=== PATIENT | female | born 1960 | race Caucasian/White ===

== ENCOUNTER 2017-07-14 07:30 | Emergency (ER) | payer MEDICARE, OTHER ==
[~2017-07-14] VITALS: Ht 5619.3 cm; Wt 115.0 kg
[~2017-07-14 07:30] MED LIST: ALBU8HFA PO; ATOR-2 PO; CARV-50 PO; DICL100G15 TP; FURO80TA87 PO; GABA-532 PR; HYDR-565 PO; METF500T7 PO; NITR0.4T51 SL; OMEP20TA5 PO; OXYB5TAB11 PO; RANI300C PO; TIZA4CAP6 PO
[2017-07-14 08:02] LABS: CLARITY,URINE CLEAR (Clear); COLOR,URINE YELLOW (Yellow); GLUCOSE, URINE NEGATIVE (Neg); KETONES,URINE TRACE mg/dl (Neg); LEUKOCYTE ESTERASE ,URINE NEGATIVE (Neg); NITRITES, URINE NEGATIVE (Neg); OCCULT BLOOD,URINE TRACE-INTACT (Neg); PROTEIN,URINE 30 mg/dl (Neg); UROBILINOGEN,URINE 0.2 E.U/dL (0.2-1.0)
[2017-07-14 08:07] LABS: UA COLLECTION TYPE OTHER
[2017-07-14 08:09] LABS: BACTERIA,URINE FEW /HPF (Neg); MUCUS STRANDS FEW /LPF (Neg); RBC,URINE 0-2 /HPF (0-2); SQUAMOUS EPITHELIAL CELL,UR MODERATE /LPF (FEW); WBC,URINE 0-4 /HPF (0-4)
[2017-07-14] MEDS ORDERED: ondansetron/PF 4mg/2ml inj IV ONE (08:20)
[2017-07-14] MEDS ORDERED: normal saline 1000ML IV soln IVB ONE ×2 (08:20)
[2017-07-14 08:47] LABS: BASOPHILS % (AUTO) 0.3 % (0-1); EOSINOPHILS # (AUTO) 0.5 X10'3 (0-0.9); EOSINOPHILS % (AUTO) 3.4 % (0-6); HEMATOCRIT 45.9 % (35.0-45.0); LYMPHOCYTES # (AUTO) 1.9 X10'3 (1.1-4.8); LYMPHOCYTES % (AUTO) 12.3 % (21-51); MEAN CORPUSCULAR VOLUME 88.8 FL (78-98); MEAN PLATELET VOLUME 7.8 FL (7.4-10.4); MONOCYTES # (AUTO) 0.6 X10'3 (0-0.9); MONOCYTES % (AUTO) 4.1 % (2-12); NEUTROPHILS # (AUTO) 12.1 X10'3 (1.8-7.7); NEUTROPHILS % (AUTO) 79.9 % (42-75); PLATELET COUNT 362 X10'3 (140-440); RED BLOOD COUNT 5.17 X10'6 (4.20-5.60); RED CELL DISTRIBUTION WIDTH 13.2 % (11.5-14.5); WHITE BLOOD COUNT 15.1 X10'3 (4.5-11.0)
[2017-07-14 09:02] LABS: ALANINE AMINOTRANSFERASE 28 U/L (12-78); ALBUMIN 3.7 G/DL (3.4-5.0); ALBUMIN/GLOBULIN RATIO 0.8 (1.1-1.5); ALKALINE PHOSPHATASE 118 IU/L (46-116); ANION GAP 11 (8-16); ASPARTATE AMINO TRANSFERASE 19 U/L (10-37); BILIRUBIN,TOTAL 0.4 MG/DL (0.1-1.0); BLOOD UREA NITROGEN 16 MG/DL (7-18); BUN/CREATININE RATIO 14.4 (6.6-38.0); CALCIUM 9.7 MG/DL (8.5-10.1); CHLORIDE 102 MMOL/L (99-107); CREATININE 1.11 MG/DL (0.40-0.90); GLUCOSE 156 MG/DL (70-104); LIPASE 156 U/L (73-393); POTASSIUM 4.5 MMOL/L (3.5-5.1); SODIUM 139 MMOL/L (135-145); TOTAL CARBON DIOXIDE 25.8 MMOL/L (24-32); TOTAL PROTEIN 8.4 G/DL (6.4-8.2); eGFR 51 ML/MIN
[2017-07-14] MEDS ORDERED: PANT-47 PO (09:48)
[2017-07-14] MEDS: proCHLORperazine 10 MG/2 ml inj IV ONE ×2 (09:54→10:12)
[2017-07-14] MEDS ORDERED: morphine 4 MG/ML inj SYRINge IV ONE (10:10)
[2017-07-14 10:54] VITALS: BP 168/83
== END 2017-07-14 10:58 | disposition home or self-care (01) ==
LOC: ER 07:30
DX: R10.13 Epigastric pain (principal); I25.10 Atherosclerotic heart disease of native coronary artery without angina pectoris; E78.00 Pure hypercholesterolemia, unspecified; I25.2 Old myocardial infarction; K21.9 Gastro-esophageal reflux disease without esophagitis; E11.9 Type 2 diabetes mellitus without complications; F17.200 Nicotine dependence, unspecified, uncomplicated; G89.29 Other chronic pain; Z88.2 Allergy status to sulfonamides; Z88.0 Allergy status to penicillin; Z79.899 Other long term (current) drug therapy; Z86.73 Personal history of transient ischemic attack (TIA), and cerebral infarction without residual deficits; Z79.84 Long term (current) use of oral hypoglycemic drugs
CPT/HCPCS: 36415; 71045; 80053; 81001; 83690; 85025; 93005; 96361; 96374; 96375; 99285; J0780; J2270; J2405; J7030

== ENCOUNTER 2019-10-20 16:20 | Emergency (ER) | payer MEDICARE, OTHER ==
[~2019-10-20] VITALS: Ht 170.2 cm; Wt 111.0 kg
[~2019-10-20 16:20] MED LIST changes: -ATOR-2 PO; +BACL-11 PO; -CARV-50 PO; -DICL100G15 TP; -FURO80TA87 PO; -GABA-532 PR; -HYDR-565 PO; +LEVO500T89 PO; -METF500T7 PO; -OMEP20TA5 PO; -OXYB5TAB11 PO; +PRED20TA PO; -RANI300C PO; -TIZA4CAP6 PO
[2019-10-20] MEDS ORDERED: MULT-687 PO (16:41)
[2019-10-20] MEDS ORDERED: ASPI-611 PO (16:41)
--- NOTE | 2019-10-20 16:46 | NUR ---
With patient to CT at this time per MD order. Patient awake, alert, no signs of distress noted, slurred speech noted.
[2019-10-20 16:50] LABS: BASOPHILS # (AUTO) 0.1 X10'3 (0-0.2); BASOPHILS % (AUTO) 0.8 % (0-1); EOSINOPHILS # (AUTO) 0.2 X10'3 (0-0.9); EOSINOPHILS % (AUTO) 2.6 % (0-6); HEMATOCRIT 44.5 % (35.0-45.0); LYMPHOCYTES # (AUTO) 2.7 X10'3 (1.1-4.8); LYMPHOCYTES % (AUTO) 33.3 % (21-51); MEAN CORPUSCULAR HEMOGLOBIN 31.5 PG (27.0-31.0); MEAN CORPUSCULAR HGB CONC 33.7 g/dL (33.0-36.5); MEAN CORPUSCULAR VOLUME 93.5 FL (78-98); MEAN PLATELET VOLUME 7.6 FL (7.4-10.4); MONOCYTES # (AUTO) 0.6 X10'3 (0-0.9); MONOCYTES % (AUTO) 7.4 % (2-12); NEUTROPHILS # (AUTO) 4.6 X10'3 (1.8-7.7); NEUTROPHILS % (AUTO) 55.9 % (42-75); PLATELET COUNT 332 X10'3 (140-440); RED BLOOD COUNT 4.76 X10'6 (4.20-5.60); RED CELL DISTRIBUTION WIDTH 14.3 % (11.5-14.5); WHITE BLOOD COUNT 8.2 X10'3 (4.5-11.0)
--- NOTE | 2019-10-20 16:50 | NUR ---
Pt in ct scan, returns to bed 7. pt with sympoms of R arm chest pain, reports as stabbing pain rates 3/10. This pain radiates down her right leg. These symptoms started at 1pm when she went to the door and picked up a package. She also reports, thick, slow speech which is new for her. Decreased sensation around entire mouth, and left arm. Will have telemed consult as she is with in the 05/07 window.
--- NOTE | 2019-10-20 17:00 | NUR ---
Stroke RN Annabelle at bedside at this time.
[2019-10-20 17:01] LABS: PARTIAL THROMBOPLASTIN TIME 29 SECONDS (22-32)
[2019-10-20 17:03] LABS: ALANINE AMINOTRANSFERASE 31 U/L (12-78); ALBUMIN 3.5 G/DL (3.4-5.0); ALBUMIN/GLOBULIN RATIO 0.9 (1.1-1.5); ALKALINE PHOSPHATASE 130 IU/L (46-116); ANION GAP 8 (8-16); ASPARTATE AMINO TRANSFERASE 18 U/L (10-37); BILIRUBIN,TOTAL 0.3 MG/DL (0.1-1.0); BLOOD UREA NITROGEN 9 MG/DL (7-18); BUN/CREATININE RATIO 10.1 (6.6-38.0); CALCIUM 9.1 MG/DL (8.5-10.1); CHLORIDE 106 MMOL/L (99-107); CREATININE 0.89 MG/DL (0.40-0.90); GLUCOSE 129 MG/DL (70-104); POTASSIUM 4.1 MMOL/L (3.5-5.1); SODIUM 141 MMOL/L (135-145); TOTAL CARBON DIOXIDE 26.6 MMOL/L (24-32); TOTAL PROTEIN 7.6 G/DL (6.4-8.2); eGFR 65 ML/MIN
[2019-10-20 17:07] LABS: TROPONIN I < 0.04 NG/ML (0.0-0.05)
--- NOTE | 2019-10-20 17:13 | NUR ---
PER STROKE RN MAICO PATIENT IS LEVEL 1 STROKE SINCE SYMPTOMS OF NUMBNESS AROUND MOUTH AND RIGHT ARM STARTED AT APPROXIMATELY 1300 TODAY.
--- NOTE | 2019-10-20 17:15 | NUR ---
assist to bedside commode to void, symptoms unchanged.
[2019-10-20] MEDS ORDERED: iohexol 350MG/ML 100ml bottle IV ONE ×2 (17:39→17:56)
--- NOTE | 2019-10-20 17:39 | NUR ---
Dr. Shanks from consults for neurlogy via telemedicine, facial droop is now resolved. continues to have right side chest pain and thick slow speech.
[2019-10-20] MEDS ORDERED: iohexol 350 MG/ML 50ML vial IV ONE (18:00)
[2019-10-20] MEDS ORDERED: morphine 4 MG/ML inj SYRINge IV ONE (18:50)
[2019-10-20 19:27] VITALS: BP 171/74
[2019-10-20] MEDS ORDERED: HYDR-4383 PO (19:27)
== END 2019-10-20 19:31 | disposition home or self-care (01) ==
LOC: ER 16:20
DX: I10 Essential (primary) hypertension (principal); R07.89 Other chest pain; R59.1 Generalized enlarged lymph nodes; I25.10 Atherosclerotic heart disease of native coronary artery without angina pectoris; E78.00 Pure hypercholesterolemia, unspecified; I25.2 Old myocardial infarction; J45.909 Unspecified asthma, uncomplicated; K21.9 Gastro-esophageal reflux disease without esophagitis; E11.9 Type 2 diabetes mellitus without complications; G89.29 Other chronic pain; Z90.49 Acquired absence of other specified parts of digestive tract; Z98.890 Other specified postprocedural states; Z86.73 Personal history of transient ischemic attack (TIA), and cerebral infarction without residual deficits; Z88.0 Allergy status to penicillin; Z88.2 Allergy status to sulfonamides; Z88.8 Allergy status to other drugs, medicaments and biological substances; Z79.82 Long term (current) use of aspirin; Z79.899 Other long term (current) drug therapy
CPT/HCPCS: 36415; 70450; 70496; 70498; 71045; 71275; 80053; 84484; 85025; 85610; 85730; 93005; 96374; 99285; J2270; Q9967

== ENCOUNTER 2020-08-12 19:10 | Emergency (ER) | payer MEDICARE, MEDICAID ==
[~2020-08-12] VITALS: Ht 170.2 cm; Wt 107.3 kg
[~2020-08-12 19:10] MED LIST changes: +ASPI-611 PO; -BACL-11 PO; +HYDR-4383 PO; -LEVO500T89 PO; +MULT-687 PO; -NITR0.4T51 SL; -PRED20TA PO
[2020-08-12] MEDS ORDERED: ketorolac trometh. 30mg/ml inj. IM ONE (20:40)
[2020-08-12 20:49] VITALS: BP 217/104
== END 2020-08-12 20:50 | disposition home or self-care (01) ==
LOC: ER 19:12
DX: S93.491A Sprain of other ligament of right ankle, initial encounter (principal); I25.10 Atherosclerotic heart disease of native coronary artery without angina pectoris; E78.00 Pure hypercholesterolemia, unspecified; I25.2 Old myocardial infarction; K21.9 Gastro-esophageal reflux disease without esophagitis; J45.909 Unspecified asthma, uncomplicated; E11.9 Type 2 diabetes mellitus without complications; G89.29 Other chronic pain; M79.7 Fibromyalgia; Z90.49 Acquired absence of other specified parts of digestive tract; Z86.73 Personal history of transient ischemic attack (TIA), and cerebral infarction without residual deficits; Z98.890 Other specified postprocedural states; Z88.0 Allergy status to penicillin; Z91.018 Allergy to other foods; Z88.2 Allergy status to sulfonamides; Z88.8 Allergy status to other drugs, medicaments and biological substances; Z79.899 Other long term (current) drug therapy; X50.1XXA Overexertion from prolonged static or awkward postures, initial encounter; Y93.89 Activity, other specified; Y92.89 Other specified places as the place of occurrence of the external cause; Y99.8 Other external cause status
CPT/HCPCS: 73610; 96372; 99284; J1885

== ENCOUNTER 2020-10-26 13:35 | Emergency (ER) | payer MEDICARE, MEDICAID ==
[~2020-10-26] VITALS: Ht 170.2 cm; Wt 102.7 kg
[2020-10-26 15:09] LABS: BASOPHILS # (AUTO) 0.1 X10'3 (0-0.2); BASOPHILS % (AUTO) 0.7 % (0-1); EOSINOPHILS # (AUTO) 0.4 X10'3 (0-0.9); EOSINOPHILS % (AUTO) 3.9 % (0-6); HEMATOCRIT 38.4 % (35.0-45.0); HEMOGLOBIN 13.3 g/dl (12.0-16.0); LYMPHOCYTES # (AUTO) 1.9 X10'3 (1.1-4.8); LYMPHOCYTES % (AUTO) 21.2 % (21-51); MEAN CORPUSCULAR HEMOGLOBIN 31.2 PG (27.0-31.0); MEAN CORPUSCULAR HGB CONC 34.5 g/dL (33.0-36.5); MEAN CORPUSCULAR VOLUME 90.3 FL (78-98); MEAN PLATELET VOLUME 7.2 FL (7.4-10.4); MONOCYTES # (AUTO) 0.7 X10'3 (0-0.9); NEUTROPHILS % (AUTO) 66.2 % (42-75); PLATELET COUNT 352 X10'3 (140-440); RED BLOOD COUNT 4.25 X10'6 (4.20-5.60); RED CELL DISTRIBUTION WIDTH 13.2 % (11.5-14.5)
[2020-10-26 15:22] LABS: ALANINE AMINOTRANSFERASE 20 U/L (12-78); ALBUMIN 3.1 G/DL (3.4-5.0); ALBUMIN/GLOBULIN RATIO 0.8 (1.1-1.5); ALKALINE PHOSPHATASE 119 IU/L (46-116); ANION GAP 7 (8-16); ASPARTATE AMINO TRANSFERASE 12 U/L (10-37); BILIRUBIN,TOTAL 0.3 MG/DL (0.1-1.0); BLOOD UREA NITROGEN 13 MG/DL (7-18); BUN/CREATININE RATIO 10.7 (6.6-38.0); CALCIUM 8.4 MG/DL (8.5-10.1); CHLORIDE 103 MMOL/L (99-107); CREATININE 1.21 MG/DL (0.40-0.90); GLUCOSE 103 MG/DL (70-104); POTASSIUM 3.8 MMOL/L (3.5-5.1); SODIUM 137 MMOL/L (135-145); eGFR 45 ML/MIN
[2020-10-26] MEDS ORDERED: HYDROcodone/acetaminophen 5mg/325mg tablet PO ONE (15:40)
[2020-10-26 16:07] VITALS: BP 99/61
[2020-10-26] MEDS ORDERED: DULO20CA18 PO (16:24)
[2020-10-26] MEDS ORDERED: CLOP75TA34 PO (16:24)
[2020-10-26] MEDS ORDERED: LISI10TA27 PO (16:24)
[2020-10-26] MEDS ORDERED: ATOR20TA66 PO (16:24)
[2020-10-26] MEDS ORDERED: OXYB5TAB16 PO (16:24)
[2020-10-26] MEDS ORDERED: TIZA-189 PO (16:24)
[2020-10-26] MEDS ORDERED: CETI10TA14 PO (16:24)
[2020-10-26] MEDS ORDERED: METF-950 PO (16:24)
[2020-10-26] MEDS ORDERED: CEPH-585 PO (16:24)
[2020-10-26] MEDS ORDERED: FLUT16SP2 BOTHNARES (16:29)
[2020-10-26] MEDS ORDERED: ERGO500054 PO (16:29)
[2020-10-26] MEDS ORDERED: CYAN-51 PO (16:30)
== END 2020-10-26 18:43 | disposition home or self-care (01) ==
LOC: ER 13:35
DX: R07.89 Other chest pain (principal); R06.02 Shortness of breath; M54.89 Other dorsalgia; I25.10 Atherosclerotic heart disease of native coronary artery without angina pectoris; E78.00 Pure hypercholesterolemia, unspecified; I25.2 Old myocardial infarction; J45.909 Unspecified asthma, uncomplicated; K21.9 Gastro-esophageal reflux disease without esophagitis; G89.29 Other chronic pain; E11.9 Type 2 diabetes mellitus without complications; Z86.73 Personal history of transient ischemic attack (TIA), and cerebral infarction without residual deficits; Z87.11 Personal history of peptic ulcer disease; Z90.89 Acquired absence of other organs; Z98.890 Other specified postprocedural states; Z88.0 Allergy status to penicillin; Z88.2 Allergy status to sulfonamides; Z88.8 Allergy status to other drugs, medicaments and biological substances; Z79.899 Other long term (current) drug therapy; Z79.2 Long term (current) use of antibiotics
CPT/HCPCS: 36415; 71045; 80053; 83880; 84484; 85025; 93005; 99285

== ENCOUNTER 2020-11-17 15:32 | Emergency (ER) | payer MEDICARE, MEDICAID ==
[~2020-11-17] VITALS: Ht 170.2 cm; Wt 100.0 kg
[~2020-11-17 15:32] MED LIST changes: -ASPI-611 PO; +ATOR20TA66 PO; +CEPH-585 PO; +CETI10TA14 PO; +CLOP75TA34 PO; +CYAN-51 PO; +DULO20CA18 PO; +ERGO500054 PO; +FLUT16SP2 BOTHNARES; -HYDR-4383 PO; +LISI10TA27 PO; +METF-950 PO; -MULT-687 PO; +OXYB5TAB16 PO; +TIZA-189 PO
[2020-11-17 17:16] LABS: BASOPHILS # (AUTO) 0.1 X10'3 (0-0.2); BASOPHILS % (AUTO) 0.9 % (0-1); EOSINOPHILS # (AUTO) 0.5 X10'3 (0-0.9); EOSINOPHILS % (AUTO) 4.5 % (0-6); HEMATOCRIT 42.6 % (35.0-45.0); HEMOGLOBIN 14.6 g/dl (12.0-16.0); LYMPHOCYTES # (AUTO) 2.6 X10'3 (1.1-4.8); LYMPHOCYTES % (AUTO) 21.3 % (21-51); MEAN CORPUSCULAR HEMOGLOBIN 30.5 PG (27.0-31.0); MEAN CORPUSCULAR HGB CONC 34.1 g/dL (33.0-36.5); MEAN CORPUSCULAR VOLUME 89.3 FL (78-98); MEAN PLATELET VOLUME 7.3 FL (7.4-10.4); MONOCYTES # (AUTO) 0.8 X10'3 (0-0.9); NEUTROPHILS % (AUTO) 66.3 % (42-75); PLATELET COUNT 369 X10'3 (140-440); RED BLOOD COUNT 4.77 X10'6 (4.20-5.60); RED CELL DISTRIBUTION WIDTH 13.3 % (11.5-14.5)
[2020-11-17 17:30] LABS: ALANINE AMINOTRANSFERASE 42 U/L (12-78); ALBUMIN 3.3 G/DL (3.4-5.0); ALBUMIN/GLOBULIN RATIO 0.8 (1.1-1.5); ALKALINE PHOSPHATASE 109 IU/L (46-116); ANION GAP 11 (8-16); ASPARTATE AMINO TRANSFERASE 25 U/L (10-37); BILIRUBIN,TOTAL 0.3 MG/DL (0.1-1.0); BLOOD UREA NITROGEN 18 MG/DL (7-18); BUN/CREATININE RATIO 13.4 (6.6-38.0); CHLORIDE 102 MMOL/L (99-107); CREATININE 1.34 MG/DL (0.40-0.90); GLUCOSE 146 MG/DL (70-104); SODIUM 139 MMOL/L (135-145); TOTAL CARBON DIOXIDE 26.2 MMOL/L (24-32); TOTAL PROTEIN 7.4 G/DL (6.4-8.2); eGFR 40 ML/MIN
[2020-11-17 17:36] LABS: CALCIUM 8.7 MG/DL (8.5-10.1)
[2020-11-17 18:34] VITALS: BP 153/83
== END 2020-11-17 18:36 | disposition home or self-care (01) ==
LOC: ER 15:33
DX: M25.552 Pain in left hip (principal); G62.9 Polyneuropathy, unspecified; R20.0 Anesthesia of skin; I25.10 Atherosclerotic heart disease of native coronary artery without angina pectoris; E78.00 Pure hypercholesterolemia, unspecified; I25.2 Old myocardial infarction; J45.909 Unspecified asthma, uncomplicated; K21.9 Gastro-esophageal reflux disease without esophagitis; E11.9 Type 2 diabetes mellitus without complications; G89.29 Other chronic pain; Z86.73 Personal history of transient ischemic attack (TIA), and cerebral infarction without residual deficits; Z87.11 Personal history of peptic ulcer disease; Z90.89 Acquired absence of other organs; Z98.890 Other specified postprocedural states; Z88.0 Allergy status to penicillin; Z88.2 Allergy status to sulfonamides; Z88.8 Allergy status to other drugs, medicaments and biological substances; Z91.018 Allergy to other foods; Z79.2 Long term (current) use of antibiotics; Z79.899 Other long term (current) drug therapy
CPT/HCPCS: 36415; 70450; 80053; 85025; 93005; 99285

== ENCOUNTER 2022-05-04 20:55 | Emergency (ER) | payer MEDICARE, MEDICAID ==
[~2022-05-04] VITALS: Ht 170.2 cm; Wt 100.8 kg
[~2022-05-04 20:55] MED LIST changes: +APIX5TAB3 PO; -CEPH-585 PO; +CHOL200074 PO; -CLOP75TA34 PO; -CYAN-51 PO; +CYAN100T47 PO; +DOXY-224 PO; -DULO20CA18 PO; +DULO60CA65 PO; -ERGO500054 PO; +FURO20TA4 PO; +HYDR-3965 PO; +METF-1203 PO; -METF-950 PO; +PANT-47 PO; +PRED20TA PO; +SOTA80TA46 PO
[2022-05-04] MEDS ORDERED: fluorescein sod 1mg ophthalmic strip EACHEYE ONE (23:20)
[2022-05-05] MEDS ORDERED: ciprofloxacin 0.3% 2.5ml ophthalmic solution EACHEYE ONE (00:35)
[2022-05-05 00:46] VITALS: BP 198/74
--- NOTE | 2022-05-05 00:55 | NUR ---
Provider aware of discharge hypertension. Patient cleared for discharge pending provider completion of discharge instructions.
[2022-05-05] MEDS ORDERED: CIPR2.5D21 EACHEYE (00:56)
== END 2022-05-05 01:06 | disposition home or self-care (01) ==
LOC: ER 20:55
DX: H10.9 Unspecified conjunctivitis (principal); I11.9 Hypertensive heart disease without heart failure; E78.00 Pure hypercholesterolemia, unspecified; J44.9 Chronic obstructive pulmonary disease, unspecified; G89.29 Other chronic pain; M54.9 Dorsalgia, unspecified; Z88.0 Allergy status to penicillin; Z88.2 Allergy status to sulfonamides; Z79.899 Other long term (current) drug therapy; Z91.018 Allergy to other foods; Z79.1 Long term (current) use of non-steroidal anti-inflammatories (NSAID); Z79.2 Long term (current) use of antibiotics
CPT/HCPCS: 99283; J3490

== ENCOUNTER 2022-06-01 14:43 | Emergency (ER) | payer MEDICARE, MEDICAID ==
[~2022-06-01] VITALS: Ht 170.2 cm; Wt 97.7 kg
[2022-06-01] MEDS ORDERED: methylPREDNISolone sod succ 125mg/2ml vial IV ONE (16:15)
[2022-06-01] MEDS ORDERED: normal saline 1000ML IV soln IVB ONE (16:15)
[2022-06-01] MEDS ORDERED: ipratropium/albuterol 3ml nebule NEB STA (16:16)
[2022-06-01 16:43] LABS: BASOPHILS % (AUTO) 0.6 % (0-1); EOSINOPHILS # (AUTO) 0.3 X10'3 (0-0.9); EOSINOPHILS % (AUTO) 3.5 % (0-6); HEMATOCRIT 34.8 % (35.0-45.0); HEMOGLOBIN 11.8 g/dl (12.0-16.0); LYMPHOCYTES # (AUTO) 2.9 X10'3 (1.1-4.8); LYMPHOCYTES % (AUTO) 37.1 % (21-51); MEAN CORPUSCULAR HEMOGLOBIN 31.2 PG (27.0-31.0); MEAN CORPUSCULAR HGB CONC 33.8 g/dL (33.0-36.5); MEAN CORPUSCULAR VOLUME 92.3 FL (78-98); MEAN PLATELET VOLUME 7.3 FL (7.4-10.4); MONOCYTES # (AUTO) 0.7 X10'3 (0-0.9); MONOCYTES % (AUTO) 8.7 % (2-12); NEUTROPHILS % (AUTO) 50.1 % (42-75); PLATELET COUNT 313 X10'3 (140-440); RED BLOOD COUNT 3.77 X10'6 (4.20-5.60); RED CELL DISTRIBUTION WIDTH 14.9 % (11.5-14.5); WHITE BLOOD COUNT 7.9 X10'3 (4.5-11.0)
[2022-06-01 17:05] LABS: ALANINE AMINOTRANSFERASE 21 U/L (12-78); ALBUMIN 3.1 G/DL (3.4-5.0); ALBUMIN/GLOBULIN RATIO 0.9 (1.1-1.5); ALKALINE PHOSPHATASE 104 IU/L (46-116); ANION GAP 5 (8-16); ASPARTATE AMINO TRANSFERASE 14 U/L (10-37); BILIRUBIN,TOTAL 0.4 MG/DL (0.1-1.0); BLOOD UREA NITROGEN 20 MG/DL (7-18); BUN/CREATININE RATIO 18.9 (6.6-38.0); CALCIUM 8.8 MG/DL (8.5-10.1); CHLORIDE 103 MMOL/L (99-107); CREATININE 1.06 MG/DL (0.40-0.90); GLUCOSE 96 MG/DL (70-104); POTASSIUM 3.8 MMOL/L (3.5-5.1); SODIUM 137 MMOL/L (135-145); TOTAL CARBON DIOXIDE 28.8 MMOL/L (24-32); TOTAL PROTEIN 6.6 G/DL (6.4-8.2); eGFR 53 ML/MIN
[2022-06-01] MEDS ORDERED: PANT40TA54 PO (18:37)
[2022-06-01] MEDS ORDERED: APIX5TAB3 PO (18:39)
[2022-06-01] MEDS ORDERED: FAMO20TA8 PO (18:39)
[2022-06-01] MEDS ORDERED: SOTA80TA73 PO (18:40)
[2022-06-01] MEDS ORDERED: GABA300C PO ×2 (18:42→18:43)
[2022-06-01] MEDS ORDERED: CHOL20003 PO (18:44)
[2022-06-01] MEDS ORDERED: CYAN100T47 PO (18:45)
[2022-06-01] MEDS ORDERED: CALC-995 PO (18:49)
[2022-06-01] MEDS ORDERED: ACET-1131 PO (18:50)
[2022-06-01] MEDS ORDERED: FLUT1DIS4 INH (19:25)
[2022-06-01 19:31] VITALS: BP 167/88
== END 2022-06-01 19:32 | disposition home or self-care (01) ==
LOC: ER 14:44
DX: R53.1 Weakness (principal); J98.01 Acute bronchospasm; R07.89 Other chest pain; E78.00 Pure hypercholesterolemia, unspecified; K21.9 Gastro-esophageal reflux disease without esophagitis; G89.29 Other chronic pain; M54.50 Low back pain, unspecified; F17.200 Nicotine dependence, unspecified, uncomplicated; Z88.0 Allergy status to penicillin; Z88.2 Allergy status to sulfonamides; Z88.8 Allergy status to other drugs, medicaments and biological substances; Z91.018 Allergy to other foods; Z98.890 Other specified postprocedural states
CPT/HCPCS: 36415; 71045; 80053; 83880; 85025; 85610; 93005; 94640; 96361; 96374; 99285; J2930; J7030; 94760

== ENCOUNTER 2022-08-30 07:56 | Emergency (ER) | payer MEDICARE, MEDICAID ==
[~2022-08-30] VITALS: Ht 170.2 cm; Wt 100.9 kg
[~2022-08-30 07:56] MED LIST changes: +ACET-1131 PO; +ADV50250 PO; +ASPI-1071 PO; +CALC-995 PO; +CHOL20003 PO; -CHOL200074 PO; -DOXY-224 PO; -FLUT16SP2 BOTHNARES; -FURO20TA4 PO; +GABA300C PO; -HYDR-3965 PO; -PANT-47 PO; +PANT40TA54 PO; -PRED20TA PO; -SOTA80TA46 PO; +SOTA80TA73 PO
[2022-08-30] MEDS ORDERED: HYDR-3965 PO ×2 (08:39)
[2022-08-30] MEDS ORDERED: HYDROcodone/acetaminophen 5mg/325mg tablet PO ONE (09:25)
[2022-08-30 09:46] VITALS: BP 146/65
== END 2022-08-30 10:06 | disposition home or self-care (01) ==
LOC: ER 07:56
DX: S00.83XA Contusion of other part of head, initial encounter (principal); M54.2 Cervicalgia; R07.81 Pleurodynia; I11.9 Hypertensive heart disease without heart failure; J45.909 Unspecified asthma, uncomplicated; K21.9 Gastro-esophageal reflux disease without esophagitis; G89.29 Other chronic pain; M54.9 Dorsalgia, unspecified; F32.A Depression, unspecified; Z88.0 Allergy status to penicillin; Z88.2 Allergy status to sulfonamides; Z79.899 Other long term (current) drug therapy; Z88.6 Allergy status to analgesic agent; Z91.018 Allergy to other foods; Z79.1 Long term (current) use of non-steroidal anti-inflammatories (NSAID); Z79.2 Long term (current) use of antibiotics; W19.XXXA Unspecified fall, initial encounter; Y93.89 Activity, other specified; Y92.89 Other specified places as the place of occurrence of the external cause; Y99.8 Other external cause status
CPT/HCPCS: 70450; 71250; 72125; 99284

== ENCOUNTER 2022-12-13 10:42 | Day surgery (SDC) | payer MEDICARE, MEDICAID ==
[~2022-12-13] VITALS: Ht 170.2 cm; Wt 97.1 kg
[~2022-12-13 10:42] MED LIST changes: -ASPI-1071 PO; +HYDR-3965 PO
[2022-12-13 11:05] VITALS: BP 156/91; PULSE 62; RESP 16; TEMP 97.4; O2SAT 96
[2022-12-13] MEDS ORDERED: LIDOcaine 1% 30ml preserv. free vial SQ STA (11:43)
[2022-12-13 12:25] VITALS: BP 168/74; PULSE 60; RESP 16; O2SAT 98
[2022-12-13 12:35] VITALS: BP 155/67; PULSE 57; RESP 16; O2SAT 96
[2022-12-13 12:45] VITALS: BP 152/87; PULSE 55; RESP 15; O2SAT 96
[2022-12-13 12:50] VITALS: BP 145/81; PULSE 58; RESP 16; O2SAT 95
[2022-12-13 13:05] VITALS: BP 132/72; PULSE 67; RESP 16; O2SAT 98
== END 2022-12-13 13:45 | disposition home or self-care (01) ==
LOC: SSTAY O 10:42
PROVIDERS: ATTEND Radiology Diagnostic Radiology
DX: K11.8 Other diseases of salivary glands (principal); D11.0 Benign neoplasm of parotid gland; I48.91 Unspecified atrial fibrillation; I25.10 Atherosclerotic heart disease of native coronary artery without angina pectoris; E11.9 Type 2 diabetes mellitus without complications; E78.00 Pure hypercholesterolemia, unspecified; I10 Essential (primary) hypertension; Z86.73 Personal history of transient ischemic attack (TIA), and cerebral infarction without residual deficits; Z88.0 Allergy status to penicillin; Z88.2 Allergy status to sulfonamides; Z88.8 Allergy status to other drugs, medicaments and biological substances; Z91.018 Allergy to other foods; Z79.899 Other long term (current) drug therapy; Z79.84 Long term (current) use of oral hypoglycemic drugs; Z82.49 Family history of ischemic heart disease and other diseases of the circulatory system; Z80.41 Family history of malignant neoplasm of ovary
CPT/HCPCS: 10005; 10006; J3490

== ENCOUNTER 2022-12-16 18:48 | Inpatient (IN) | payer MEDICARE, MEDICAID ==
[~2022-12-16] VITALS: Ht 170.2 cm; Wt 97.7 kg
[~2022-12-16 18:48] MED LIST changes: -ADV50250 PO; -HYDR-3965 PO
[2022-12-16] MEDS ORDERED: predniSONE 20 mg tablet PO ONE (19:05)
[2022-12-16] MEDS ORDERED: ipratropium/albuterol 3ml nebule NEB ONE (19:05)
[2022-12-16 19:25] LABS: EOSINOPHILS # (AUTO) 0.6 X10'3 (0-0.9); MEAN PLATELET VOLUME 7.2 FL (7.4-10.4)
[2022-12-16 19:27] LABS: BASOPHILS # (AUTO) 0.1 X10'3 (0-0.2); BASOPHILS % (AUTO) 0.6 % (0-1); EOSINOPHILS % (AUTO) 5.4 % (0-6); HEMATOCRIT 42.2 % (35.0-45.0); HEMOGLOBIN 14.5 g/dl (12.0-16.0); LYMPHOCYTES # (AUTO) 1.6 X10'3 (1.1-4.8); LYMPHOCYTES % (AUTO) 15.5 % (21-51); MEAN CORPUSCULAR HEMOGLOBIN 30.7 PG (27.0-31.0); MEAN CORPUSCULAR HGB CONC 34.3 g/dL (33.0-36.5); MEAN CORPUSCULAR VOLUME 89.6 FL (78-98); MONOCYTES # (AUTO) 0.8 X10'3 (0-0.9); MONOCYTES % (AUTO) 7.4 % (2-12); NEUTROPHILS # (AUTO) 7.3 X10'3 (1.8-7.7); NEUTROPHILS % (AUTO) 71.1 % (42-75); PLATELET COUNT 320 X10'3 (140-440); RED BLOOD COUNT 4.71 X10'6 (4.20-5.60); RED CELL DISTRIBUTION WIDTH 14.8 % (11.5-14.5); WHITE BLOOD COUNT 10.3 X10'3 (4.5-11.0)
[2022-12-16 19:36] LABS: ALANINE AMINOTRANSFERASE 23 U/L (12-78); ALBUMIN 3.6 G/DL (3.4-5.0); ALBUMIN/GLOBULIN RATIO 0.9 (1.1-1.5); ALKALINE PHOSPHATASE 138 IU/L (46-116); ANION GAP 12 (8-16); ASPARTATE AMINO TRANSFERASE 16 U/L (10-37); BILIRUBIN,TOTAL 0.4 MG/DL (0.1-1.0); BLOOD UREA NITROGEN 17 MG/DL (7-18); BUN/CREATININE RATIO 15.6 (10.0-20.0); CALCIUM 9.4 MG/DL (8.5-10.1); CHLORIDE 98 MMOL/L (99-107); CREATININE 1.09 MG/DL (0.40-0.90); GLUCOSE 133 MG/DL (70-104); POTASSIUM 4.1 MMOL/L (3.5-5.1); SODIUM 136 MMOL/L (135-145); TOTAL CARBON DIOXIDE 25.8 MMOL/L (24-32); TOTAL PROTEIN 7.8 G/DL (6.4-8.2); eCRCL 51 ML/MIN; eGFR 51 ML/MIN
[2022-12-16 19:40] VITALS: PULSE 83; RESP 14; O2SAT 89
[2022-12-16 19:43] LABS: PRO BRAIN NATRIURETIC PEPTIDE 1844 PG/ML (0-125)
[2022-12-16 19:48] VITALS: PULSE 83; RESP 14; O2SAT 93
[2022-12-16] MEDS ORDERED: azithromycin 250mg tablet PO ONE (20:25)
[2022-12-16] MEDS ORDERED: PRED20TA PO (20:26)
[2022-12-16] MEDS ORDERED: AZIT-103 PO (20:26)
[2022-12-16] MEDS ORDERED: furosemide 10 MG/1 ML 10ml inj IV ONE (21:00)
[2022-12-16] MEDS ORDERED: temazepam 15mg capsule PO PRN (21:00)
--- NOTE | 2022-12-16 22:54 | NUR ---
pt placed onto in-patient bed
[2022-12-16] MEDS ORDERED: dextrose 50%-water 50ml dispensing syringe IV PRN ×2 (23:45)
[2022-12-16] MEDS ORDERED: MESSAGE TO PHARMACY PO ONE (23:45)
[2022-12-16] MEDS ORDERED: DEXTROSE 15 GM of carb/4 tabs (each vial/BOTTLE has 4 tablets) PO PRN ×2 (23:45)
[2022-12-16] MEDS ORDERED: glucagon, human recombinant 1mg kit SUBCUT PRN (23:45)
[2022-12-16] MEDS ORDERED: diphenhydrAMINE 50 mg/ml inj IV PRN (23:50)
[2022-12-16] MEDS ORDERED: ondansetron/PF 4mg/2ml inj IV PRN (23:50)
[2022-12-16] MEDS ORDERED: acetaminophen 650mg rectal suppository RC PRN (23:50)
[2022-12-16] MEDS ORDERED: mag hydrox/Alum hydrox/simeth 30ml oral suspension PO PRN (23:50)
[2022-12-16] MEDS ORDERED: HYDROcodone/acetaminophen 5mg/325mg tablet PO PRN (23:50)
[2022-12-16] MEDS ORDERED: ondansetron 4mg rapidly disintigrating tab PO PRN (23:50)
[2022-12-16] MEDS ORDERED: morphine 2 MG/ML inj. syringe IV PRN (23:50)
[2022-12-16] MEDS ORDERED: acetaminophen 325mg tablet PO PRN ×2 (23:50)
[2022-12-16] MEDS ORDERED: diphenhydrAMINE 25mg capsule PO PRN (23:50)
[2022-12-16] MEDS ORDERED: bisacodyl 10mg suppository rectal RC PRN (23:50)
[2022-12-17] VITALS (12 sets, daily range): BP systolic 210–214; BP diastolic 88–107; PULSE 65–100; RESP 18–22; TEMP 97.3–97.5; O2SAT 90–96
[2022-12-17] MEDS ORDERED: hydrALAZINE 20mg/ml inj. IV PRN
[2022-12-17] MEDS: normal saline 1000ml 1,000 ML IV SCH (00:22)
[2022-12-17] MEDS: methylPREDNISolone sod succ 125mg/2ml vial IV SCH ×2 (00:30→09:30)
[2022-12-17] MEDS: ipratropium/albuterol 3ml nebule NEB PRN ×4 (00:48→23:09)
[2022-12-17 07:25] LABS: BASOPHILS % (AUTO) 0.2 % (0-1); EOSINOPHILS % (AUTO) 0 % (0-6); HEMATOCRIT 47.3 % (35.0-45.0); HEMOGLOBIN 16.1 g/dl (12.0-16.0); LYMPHOCYTES # (AUTO) 0.6 X10'3 (1.1-4.8); LYMPHOCYTES % (AUTO) 5.6 % (21-51); MEAN CORPUSCULAR HEMOGLOBIN 30.7 PG (27.0-31.0); MEAN CORPUSCULAR VOLUME 90.4 FL (78-98); MEAN PLATELET VOLUME 7.7 FL (7.4-10.4); MONOCYTES # (AUTO) 0.3 X10'3 (0-0.9); MONOCYTES % (AUTO) 2.5 % (2-12); NEUTROPHILS # (AUTO) 10.6 X10'3 (1.8-7.7); NEUTROPHILS % (AUTO) 91.7 % (42-75); PLATELET COUNT 318 X10'3 (140-440); RED BLOOD COUNT 5.24 X10'6 (4.20-5.60); WHITE BLOOD COUNT 11.5 X10'3 (4.5-11.0)
[2022-12-17 07:38] LABS: APTT 31 SECONDS (22-32)
[2022-12-17 07:40] LABS: D-DIMER < 0.19 MG/L FEU (0-0.50); INR 0.9 INR
[2022-12-17 07:45] LABS: ALANINE AMINOTRANSFERASE 22 U/L (12-78); ALBUMIN 3.7 G/DL (3.4-5.0); ALBUMIN/GLOBULIN RATIO 0.8 (1.1-1.5); ALKALINE PHOSPHATASE 156 IU/L (46-116); ANION GAP 9 (8-16); ASPARTATE AMINO TRANSFERASE 15 U/L (10-37); BILIRUBIN,TOTAL 0.4 MG/DL (0.1-1.0); BLOOD UREA NITROGEN 16 MG/DL (7-18); BUN/CREATININE RATIO 14.4 (10.0-20.0); CALCIUM 9.6 MG/DL (8.5-10.1); CHLORIDE 97 MMOL/L (99-107); CHOL/HDL RATIO 3.9 (0.00-4.99); CHOLESTEROL 199 MG/DL (0-200); CREATININE 1.11 MG/DL (0.40-0.90); GLUCOSE 225 MG/DL (70-104); HDL CHOLESTEROL 51 MG/DL (35-60); LDL CHOLESTEROL 103 MG/DL (50-100); MAGNESIUM 2.3 MG/DL (1.5-2.4); PHOSPHORUS 4.7 MG/DL (2.3-4.5); POTASSIUM 3.9 MMOL/L (3.5-5.1); SODIUM 136 MMOL/L (135-145); TOTAL CARBON DIOXIDE 29.9 MMOL/L (24-32); TOTAL PROTEIN 8.5 G/DL (6.4-8.2); TRIGLYCERIDES 104 MG/DL (20-135); eCRCL 50 ML/MIN; eGFR 50 ML/MIN
[2022-12-17] MEDS ORDERED: azithromycin/NS 500mg/250ml 250 ML IV SCH (08:00)
[2022-12-17] MEDS: docusate sod 100mg capsule PO SCH ×2 (08:25→20:29)
[2022-12-17] MEDS: buPROPion 100mg tablet PO SCH (08:25)
[2022-12-17] MEDS: insulin Lispro (HumaLOG) vial - multi-dose SQ SCH ×3 (09:36→20:19)
[2022-12-17] MEDS ORDERED: NICOTINE POLACRILEX 2 MG LOZENGE BC PRN ×2 (09:55→10:55)
[2022-12-17] MEDS ORDERED: SUMAtriptan 25 MG tablet PO ONE (09:55)
[2022-12-17] MEDS ORDERED: NICOTINE POLACRILEX 4 MG LOZENGE BC PRN (10:20)
[2022-12-17] MEDS ORDERED: apixaban 5mg tablet PO SCH (14:00)
[2022-12-17] MEDS ORDERED: ATOR40TA72 PO (14:02)
[2022-12-17] MEDS ORDERED: CYAN100019 PO (14:02)
[2022-12-17] MEDS ORDERED: LISI40TA13 PO (14:02)
[2022-12-17] MEDS: methylPREDNISolone sod succ/PF 40mg inj. IV SCH (16:07)
[2022-12-17] MEDS: morphine 2 MG/ML inj. syringe IV PRN (16:14)
--- NOTE | 2022-12-17 18:05 | NUR ---
Patient in room ORTHO 4018. I have received report from FABBY and had the opportunity to ask questions and assume patient care.
[2022-12-17] MEDS: HYDROcodone/acetaminophen 10/325mg tab PO PRN ×2 (18:54→22:45)
[2022-12-17] MEDS: gabapentin 300mg capsule PO SCH (20:00)
[2022-12-17] MEDS ORDERED: sotalol HCl 40mg (1/2 tablet) PO SCH (20:00)
[2022-12-17] MEDS: sotalol HCl 40mg (1/2 tablet) PO SCH (20:10)
[2022-12-17] MEDS: metFORMIN 500mg tablet PO SCH (20:29)
[2022-12-17] MEDS: oxybutynin 5mg tablet PO SCH (20:29)
[2022-12-17] MEDS: apixaban 5mg tablet PO SCH (20:29)
[2022-12-17] MEDS: duloxetine 30mg CAPSULE.DR PO SCH (20:29)
[2022-12-17] MEDS: buPROPion SR 150mg tablet PO SCH (20:29)
[2022-12-17] MEDS: cetirizine 10mg tablet PO SCH (20:29)
[2022-12-17] MEDS ORDERED: gabapentin 300mg capsule PO SCH (21:00)
[2022-12-17] MEDS: insulin glargine (Lantus) pen - multi-dose SQ SCH (22:41)
[2022-12-18] VITALS (10 sets, daily range): BP systolic 142–180; BP diastolic 54–87; PULSE 54–79; RESP 14–22; TEMP 97.3–98.6; O2SAT 92–97
[2022-12-18] MEDS: methylPREDNISolone sod succ/PF 40mg inj. IV SCH (01:23)
--- NOTE | 2022-12-18 01:30 | NUR ---
DR VENTURA NOTIFIED: PT BP REMAINS 180/73 AFTER BETAPACE AND HYDRALAZINE IV GIVEN. DENIES PAIN. ORDERS OBTAINED TO START NORVASC.
[2022-12-18] MEDS ORDERED: amLODIPine 5mg tablet PO ONE (01:35)
[2022-12-18] MEDS: HYDROcodone/acetaminophen 10/325mg tab PO PRN (03:58)
[2022-12-18 06:29] LABS: BASOPHILS % (AUTO) 0.1 % (0-1); EOSINOPHILS % (AUTO) 0 % (0-6); HEMATOCRIT 44.3 % (35.0-45.0); HEMOGLOBIN 14.4 g/dl (12.0-16.0); LYMPHOCYTES # (AUTO) 0.9 X10'3 (1.1-4.8); LYMPHOCYTES % (AUTO) 4.6 % (21-51); MEAN CORPUSCULAR HEMOGLOBIN 29.6 PG (27.0-31.0); MEAN CORPUSCULAR HGB CONC 32.6 g/dL (33.0-36.5); MEAN PLATELET VOLUME 7.5 FL (7.4-10.4); MONOCYTES # (AUTO) 0.6 X10'3 (0-0.9); MONOCYTES % (AUTO) 3.1 % (2-12); NEUTROPHILS # (AUTO) 17.4 X10'3 (1.8-7.7); NEUTROPHILS % (AUTO) 92.2 % (42-75); PLATELET COUNT 348 X10'3 (140-440); RED BLOOD COUNT 4.87 X10'6 (4.20-5.60); RED CELL DISTRIBUTION WIDTH 14.8 % (11.5-14.5); WHITE BLOOD COUNT 18.9 X10'3 (4.5-11.0)
--- NOTE | 2022-12-18 06:29 | NUR ---
Problems reprioritized. Patient report given, questions answered & plan of care reviewed with
--- NOTE | 2022-12-18 06:42 | NUR ---
Patient in room ORTHO 4018. I have received report from Cora YEE and had the opportunity to ask questions and assume patient care.
[2022-12-18 06:45] LABS: ALANINE AMINOTRANSFERASE 19 U/L (12-78); ALBUMIN 3.2 G/DL (3.4-5.0); ALBUMIN/GLOBULIN RATIO 0.7 (1.1-1.5); ALKALINE PHOSPHATASE 129 IU/L (46-116); ANION GAP 7 (8-16); ASPARTATE AMINO TRANSFERASE 12 U/L (10-37); BILIRUBIN,TOTAL 0.3 MG/DL (0.1-1.0); BLOOD UREA NITROGEN 27 MG/DL (7-18); BUN/CREATININE RATIO 22.9 (10.0-20.0); CALCIUM 9.3 MG/DL (8.5-10.1); CHLORIDE 97 MMOL/L (99-107); CREATININE 1.18 MG/DL (0.40-0.90); GLUCOSE 210 MG/DL (70-104); POTASSIUM 4.4 MMOL/L (3.5-5.1); SODIUM 133 MMOL/L (135-145); TOTAL CARBON DIOXIDE 29.3 MMOL/L (24-32); TOTAL PROTEIN 7.6 G/DL (6.4-8.2); eCRCL 47 ML/MIN; eGFR 46 ML/MIN
[2022-12-18] MEDS: predniSONE 20 mg tablet PO SCH (07:43)
[2022-12-18] MEDS: cyanocobalamin 500mcg tablet PO SCH (07:44)
[2022-12-18] MEDS: magnesium hydroxide 30ml (MOM) UD suspension PO PRN ×2 (07:44→21:58)
[2022-12-18] MEDS: cholecalciferol (vitamin D3) 1,000 unit (25mcg) tablet PO SCH (07:45)
[2022-12-18] MEDS: gabapentin 300mg capsule PO SCH ×2 (07:45→21:34)
[2022-12-18] MEDS: buPROPion SR 150mg tablet PO SCH ×2 (07:46→21:35)
[2022-12-18] MEDS: apixaban 5mg tablet PO SCH ×2 (07:46→21:34)
[2022-12-18] MEDS: docusate sod 100mg capsule PO SCH ×2 (07:46→21:35)
[2022-12-18] MEDS: sotalol HCl 40mg (1/2 tablet) PO SCH ×2 (07:48→21:50)
[2022-12-18] MEDS: azithromycin 250mg tablet PO SCH (07:48)
[2022-12-18] MEDS: pantoprazole 40mg Tablet.DR PO SCH (07:48)
[2022-12-18] MEDS: calcium carbonate 500mg tablet PO SCH (07:49)
[2022-12-18] MEDS: atorvastatin 20mg tablet PO SCH (07:50)
[2022-12-18] MEDS: buPROPion 100mg tablet PO SCH (07:51)
[2022-12-18] MEDS: metFORMIN 500mg tablet PO SCH (07:59)
[2022-12-18] MEDS ORDERED: duloxetine 30mg CAPSULE.DR PO SCH (08:00)
[2022-12-18] MEDS ORDERED: lisinopril 10 MG tablet PO SCH (08:00)
[2022-12-18] MEDS ORDERED: amLODIPine 5mg tablet PO SCH (08:00)
[2022-12-18] MEDS: lisinopril 20mg tablet PO SCH (08:00)
[2022-12-18] MEDS ORDERED: atorvastatin 20mg tablet PO SCH (08:00)
[2022-12-18] MEDS: amLODIPine 5mg tablet PO SCH (08:00)
[2022-12-18] MEDS ORDERED: pantoprazole 40mg Tablet.DR PO SCH (08:00)
[2022-12-18] MEDS ORDERED: hydrALAZINE 20mg/ml inj. IV ONE (08:00)
[2022-12-18] MEDS ORDERED: metoprolol tartrate 50mg tablet PO SCH (08:00)
[2022-12-18] MEDS ORDERED: lisinopril 20mg tablet PO SCH (08:00)
[2022-12-18] MEDS: insulin Lispro (HumaLOG) vial - multi-dose SQ SCH ×3 (09:39→21:45)
[2022-12-18] MEDS: acetylcysteine 200 MG/ml 4ml vial INH SCH ×2 (10:50→18:56)
[2022-12-18] MEDS: ipratropium/albuterol 3ml nebule NEB PRN ×2 (11:36→18:56)
--- NOTE | 2022-12-18 13:34 | NUR ---
Diabetes consult: Pt presents with an A1c of 7% this admit and BG 191-239mg/dl for the past two days per EMR. Pt see at bedside and provided verbal/written diabetes nutrition education. Pt reports visiting her primary doctor for diabetes management every 6 weeks, takes medication as prescribes , and last saw a dietitian outpatient 3 years ago. Pt states she follows my plate methods to the best of her abilities and tries to eat small frequent meals throughout the day however had difficulties this summer due to social/family events. Pt reports a history of diverticulitis and request hot tea instead of iced tea; notified dietary. Pt does not have any teeth and states she does not need any texture modifications. RD contact provided and encouraged the pt to reach out for any nutrition related questions or concerns. Will continue to monitor. Addendum: 12/18/22 at [address] Amended: Links added.
[2022-12-18] MEDS: HYDROcodone/acetaminophen 5mg/325mg tablet PO PRN (18:24)
--- NOTE | 2022-12-18 18:57 | NUR ---
patient up and about seen by Dr Gardiner. Meds addressed. by dr Levin . Neversink given for headache. Rt TMT x2 . O2 at @2L. Report given to Courtney YEE
--- NOTE | 2022-12-18 19:00 | NUR ---
Assumed care of pt report received by Lila Krishnan.
[2022-12-18] MEDS ORDERED: docusate sod 100mg capsule PO SCH (20:00)
[2022-12-18] MEDS: cetirizine 10mg tablet PO SCH (21:35)
[2022-12-18] MEDS: oxybutynin 5mg tablet PO SCH (21:35)
[2022-12-18] MEDS: duloxetine 30mg CAPSULE.DR PO SCH (21:35)
[2022-12-18] MEDS: insulin glargine (Lantus) pen - multi-dose SQ SCH (21:47)
[2022-12-18] MEDS: morphine 2 MG/ML inj. syringe IV PRN (21:59)
[2022-12-18] MEDS: normal saline 1000ml 1,000 ML IV SCH (23:50)
[2022-12-19] VITALS (7 sets, daily range): BP systolic 130–162; BP diastolic 51–56; PULSE 54–58; RESP 1–20; TEMP 97.5–98.4; O2SAT 91–97
[2022-12-19] MEDS: ipratropium/albuterol 3ml nebule NEB PRN ×2 (02:44→09:27)
[2022-12-19 06:47] LABS: BASOPHILS % (AUTO) 0.2 % (0-1); EOSINOPHILS % (AUTO) 0.1 % (0-6); HEMATOCRIT 39.3 % (35.0-45.0); HEMOGLOBIN 12.9 g/dl (12.0-16.0); LYMPHOCYTES # (AUTO) 2.7 X10'3 (1.1-4.8); LYMPHOCYTES % (AUTO) 15.9 % (21-51); MEAN CORPUSCULAR HEMOGLOBIN 29.9 PG (27.0-31.0); MEAN CORPUSCULAR HGB CONC 32.9 g/dL (33.0-36.5); MEAN CORPUSCULAR VOLUME 90.6 FL (78-98); MEAN PLATELET VOLUME 7.3 FL (7.4-10.4); MONOCYTES # (AUTO) 1.5 X10'3 (0-0.9); MONOCYTES % (AUTO) 8.6 % (2-12); NEUTROPHILS # (AUTO) 12.7 X10'3 (1.8-7.7); NEUTROPHILS % (AUTO) 75.2 % (42-75); PLATELET COUNT 337 X10'3 (140-440); RED BLOOD COUNT 4.33 X10'6 (4.20-5.60); WHITE BLOOD COUNT 16.9 X10'3 (4.5-11.0)
--- NOTE | 2022-12-19 06:56 | NUR ---
Report given to Lila YEE.
[2022-12-19 07:09] LABS: ALANINE AMINOTRANSFERASE 17 U/L (12-78); ALBUMIN 2.9 G/DL (3.4-5.0); ALBUMIN/GLOBULIN RATIO 0.8 (1.1-1.5); ALKALINE PHOSPHATASE 106 IU/L (46-116); ANION GAP 4 (8-16); ASPARTATE AMINO TRANSFERASE 12 U/L (10-37); BILIRUBIN,TOTAL 0.4 MG/DL (0.1-1.0); BLOOD UREA NITROGEN 34 MG/DL (7-18); BUN/CREATININE RATIO 32.7 (10.0-20.0); CHLORIDE 97 MMOL/L (99-107); CREATININE 1.04 MG/DL (0.40-0.90); GLUCOSE 135 MG/DL (70-104); POTASSIUM 4.4 MMOL/L (3.5-5.1); SODIUM 132 MMOL/L (135-145); TOTAL CARBON DIOXIDE 31.3 MMOL/L (24-32); TOTAL PROTEIN 6.7 G/DL (6.4-8.2); eCRCL 54 ML/MIN; eGFR 54 ML/MIN
[2022-12-19] MEDS: predniSONE 20 mg tablet PO SCH (07:44)
[2022-12-19] MEDS: pantoprazole 40mg Tablet.DR PO SCH (07:45)
[2022-12-19] MEDS: docusate sod 100mg capsule PO SCH (07:45)
[2022-12-19] MEDS: azithromycin 250mg tablet PO SCH (07:45)
[2022-12-19] MEDS: gabapentin 300mg capsule PO SCH (07:45)
[2022-12-19] MEDS: calcium carbonate 500mg tablet PO SCH (07:45)
[2022-12-19] MEDS: cyanocobalamin 500mcg tablet PO SCH (07:47)
[2022-12-19] MEDS: lisinopril 20mg tablet PO SCH (07:47)
[2022-12-19] MEDS: sotalol HCl 40mg (1/2 tablet) PO SCH (07:48)
[2022-12-19] MEDS: buPROPion SR 150mg tablet PO SCH (07:49)
[2022-12-19] MEDS: apixaban 5mg tablet PO SCH (07:49)
[2022-12-19] MEDS: cholecalciferol (vitamin D3) 1,000 unit (25mcg) tablet PO SCH (07:49)
[2022-12-19] MEDS: atorvastatin 20mg tablet PO SCH (07:50)
[2022-12-19] MEDS: amLODIPine 5mg tablet PO SCH (07:50)
[2022-12-19] MEDS: acetylcysteine 200 MG/ml 4ml vial INH SCH (08:00)
[2022-12-19] MEDS ORDERED: aspirin 81mg, enteric-coated 1 TAB TABLET.DR PO SCH (08:00)
[2022-12-19] MEDS: insulin Lispro (HumaLOG) vial - multi-dose SQ SCH ×2 (09:41→13:37)
[2022-12-19] MEDS: HYDROcodone/acetaminophen 5mg/325mg tablet PO PRN (12:43)
[2022-12-19] MEDS ORDERED: BUDE10.22 INH (13:39)
[2022-12-19] MEDS ORDERED: ASPI-1071 PO (14:18)
[2022-12-19] MEDS ORDERED: NOR5T PO (14:18)
[2022-12-19] MEDS ORDERED: NICO-907 BC (14:18)
[2022-12-19] MEDS ORDERED: AZI25OT PO (14:18)
[2022-12-19] MEDS ORDERED: PRED10TA23 PO (14:18)
[2022-12-19] MEDS ORDERED: ALBU8HFA PO (14:18)
--- NOTE | 2022-12-19 16:29 | NUR ---
patient up and about in room. needing regular RT tmts. . O2@2l o2 sats 92%. Seen by Dr Gardiner, is for discharge.. VSS. All Dc instructions given to patient. Patient DC home via private car with friend in stable condition
[2022-12-19 19:37] LABS: HBSAG SCREEN Negative (Negative); HEP B CORE AB, IGM Negative (Negative); HEP B CORE AB, TOT Negative (Negative)
== END 2022-12-19 16:30 | disposition home or self-care (01) | DRG 189 ==
LOC: ER 18:48 → ED HOLD 23:57 → EDBEDREQ 12-17 00:26 → ORTHO 4S 12-17 18:00
PROVIDERS: ADMIT Family Medicine; ATTEND Internal Medicine
DX: J96.21 Acute and chronic respiratory failure with hypoxia (principal); J44.1 Chronic obstructive pulmonary disease with (acute) exacerbation; I13.0 Hypertensive heart and chronic kidney disease with heart failure and stage 1 through stage 4 chronic kidney disease, or unspecified chronic kidney disease; I50.32 Chronic diastolic (congestive) heart failure; N17.9 Acute kidney failure, unspecified; I69.354 Hemiplegia and hemiparesis following cerebral infarction affecting left non-dominant side; E78.5 Hyperlipidemia, unspecified; F03.90 Unspecified dementia, unspecified severity, without behavioral disturbance, psychotic disturbance, mood disturbance, and anxiety; E11.22 Type 2 diabetes mellitus with diabetic chronic kidney disease; E11.65 Type 2 diabetes mellitus with hyperglycemia; E78.00 Pure hypercholesterolemia, unspecified; F17.200 Nicotine dependence, unspecified, uncomplicated; G89.4 Chronic pain syndrome; I25.10 Atherosclerotic heart disease of native coronary artery without angina pectoris; I48.91 Unspecified atrial fibrillation; K21.9 Gastro-esophageal reflux disease without esophagitis; I16.0 Hypertensive urgency; E86.0 Dehydration; K59.00 Constipation, unspecified; R51.9 Headache, unspecified; F32.A Depression, unspecified; M79.7 Fibromyalgia; N18.9 Chronic kidney disease, unspecified; Z79.01 Long term (current) use of anticoagulants; I25.2 Old myocardial infarction; Z85.43 Personal history of malignant neoplasm of ovary; Z87.11 Personal history of peptic ulcer disease; Z88.0 Allergy status to penicillin; Z88.2 Allergy status to sulfonamides; Z90.49 Acquired absence of other specified parts of digestive tract; Z88.8 Allergy status to other drugs, medicaments and biological substances; Z99.81 Dependence on supplemental oxygen; Z88.1 Allergy status to other antibiotic agents
CPT/HCPCS: 36415; 71045; 80053; 80061; 82948; 83036; 83605; 83735; 83880; 84100; 84145; 84484; 85025; 85379; 85610; 85730; 86704; 86705; 87040; 87070; 87081; 87340; 88173; 88305; 93005; 94640; 94664; 94668; 94760; 99285; G0378; J0360; J0456; J1815; J1940; J2270; J2920; J2930; J3490; J7030; J7512

== ENCOUNTER 2023-04-07 15:21 | Inpatient (IN) | payer MEDICARE, MEDICAID ==
[~2023-04-07] VITALS: Ht 170.2 cm; Wt 99.1 kg
[~2023-04-07 15:21] MED LIST changes: -ACET-1131 PO; -ALBU8HFA PO; +ASPI-1071 PO; -ATOR20TA66 PO; +ATOR40TA72 PO; +AZI25OT PO; +BUDE10.22 INH; +CYAN100019 PO; -CYAN100T47 PO; -LISI10TA27 PO; +LISI40TA13 PO; +NICO-907 BC; +NOR5T PO; -TIZA-189 PO
[2023-04-07] MEDS ORDERED: magnesium 4gm in 100ml NS 100 ML IV PRN (17:00)
[2023-04-07] MEDS ORDERED: potassium Cl 40MEQ/1/2NS 520ml 520 ML IV PRN (17:00)
[2023-04-07] MEDS ORDERED: acetaminophen 325mg tablet PO PRN ×2 (17:00)
[2023-04-07] MEDS ORDERED: mag hydrox/Alum hydrox/simeth 30ml oral suspension PO PRN (17:00)
[2023-04-07] MEDS ORDERED: magnesium hydroxide 30ml (MOM) UD suspension PO PRN (17:00)
[2023-04-07] MEDS ORDERED: magnesium Cl slow-release 64mg tablet PO PRN (17:00)
[2023-04-07] MEDS ORDERED: morphine 2 MG/ML inj. syringe IV PRN ×2 (17:00)
[2023-04-07] MEDS ORDERED: magnesium 2GM in 50ml NS 50 ML IV PRN (17:00)
[2023-04-07] MEDS ORDERED: ondansetron/PF 4mg/2ml inj IV PRN (17:00)
[2023-04-07] MEDS ORDERED: HYDROcodone/acetaminophen 10/325mg tab PO PRN (17:00)
[2023-04-07] MEDS ORDERED: HYDROcodone/acetaminophen 5mg/325mg tablet PO PRN (17:00)
[2023-04-07] MEDS ORDERED: potassium Cl 20 mEq SR tablet PO PRN ×2 (17:00)
[2023-04-07 17:35] LABS: PROTHROMBIN TIME 10.8 SECONDS (9.0-12.0)
[2023-04-07 17:39] LABS: ALANINE AMINOTRANSFERASE 17 U/L (12-78); ALBUMIN 3.4 G/DL (3.4-5.0); ALBUMIN/GLOBULIN RATIO 0.8 (1.1-1.5); ALKALINE PHOSPHATASE 123 IU/L (46-116); ANION GAP 7 (8-16); ASPARTATE AMINO TRANSFERASE 29 U/L (10-37); BILIRUBIN,TOTAL 0.5 MG/DL (0.1-1.0); BLOOD UREA NITROGEN 13 MG/DL (7-18); BUN/CREATININE RATIO 11.8 (10.0-20.0); CALCIUM 9.1 MG/DL (8.5-10.1); CHLORIDE 101 MMOL/L (99-107); GLUCOSE 85 MG/DL (70-104); POTASSIUM 4.2 MMOL/L (3.5-5.1); SODIUM 137 MMOL/L (135-145); TOTAL CARBON DIOXIDE 29.5 MMOL/L (24-32); TOTAL PROTEIN 7.6 G/DL (6.4-8.2); eCRCL 51 ML/MIN; eGFR 50 ML/MIN
[2023-04-07 17:46] LABS: MAGNESIUM 2.2 MG/DL (1.5-2.4); PRO BRAIN NATRIURETIC PEPTIDE 1475 PG/ML (0-125)
[2023-04-07 18:36] LABS: BASOPHILS # (AUTO) 0.1 X10'3 (0-0.2); BASOPHILS % (AUTO) 0.8 % (0-1); EOSINOPHILS # (AUTO) 0.5 X10'3 (0-0.9); EOSINOPHILS % (AUTO) 5.7 % (0-6); HEMATOCRIT 41.2 % (35.0-45.0); HEMOGLOBIN 13.8 g/dl (12.0-16.0); LYMPHOCYTES # (AUTO) 2.9 X10'3 (1.1-4.8); LYMPHOCYTES % (AUTO) 30.8 % (21-51); MEAN CORPUSCULAR HEMOGLOBIN 31.4 PG (27.0-31.0); MEAN CORPUSCULAR HGB CONC 33.6 g/dL (33.0-36.5); MEAN CORPUSCULAR VOLUME 93.5 FL (78-98); MEAN PLATELET VOLUME 7.3 FL (7.4-10.4); MONOCYTES # (AUTO) 0.7 X10'3 (0-0.9); MONOCYTES % (AUTO) 7.9 % (2-12); NEUTROPHILS # (AUTO) 5.1 X10'3 (1.8-7.7); NEUTROPHILS % (AUTO) 54.8 % (42-75); PLATELET COUNT 316 X10'3 (140-440); RED CELL DISTRIBUTION WIDTH 14.1 % (11.5-14.5); WHITE BLOOD COUNT 9.3 X10'3 (4.5-11.0)
[2023-04-07 19:49] LABS: BILIRUBIN,URINE NEGATIVE (Neg); CLARITY,URINE CLEAR (Clear); COLOR,URINE YELLOW (Yellow); GLUCOSE, URINE NEGATIVE (Neg); KETONES,URINE NEGATIVE (Neg); LEUKOCYTE ESTERASE ,URINE NEGATIVE (Neg); NITRITES, URINE NEGATIVE (Neg); OCCULT BLOOD,URINE NEGATIVE (Neg); PROTEIN,URINE 30 mg/dl (Neg); UROBILINOGEN,URINE 0.2 E.U/dL (0.2-1.0)
[2023-04-07 19:50] LABS: UA COLLECTION TYPE CLN CATCH MIDSTREAM
[2023-04-07] MEDS: normal saline 1000ml 1,000 ML IV SCH (19:50)
[2023-04-07] MEDS: docusate sod 100mg capsule PO SCH (20:00)
[2023-04-07] MEDS: K and/or MAG REPLACEMENT MC SCH (20:00)
[2023-04-07 20:01] LABS: WBC,URINE 0-4 /HPF (0-4)
[2023-04-07 20:02] LABS: BACTERIA,URINE NONE SEEN /HPF (Neg); MUCUS STRANDS NONE SEEN /LPF (Neg); RBC,URINE NONE SEEN /HPF (0-2); SQUAMOUS EPITHELIAL CELL,UR FEW /LPF (FEW)
[2023-04-07 20:06] LABS: URINE AMPHETAMINE SCREEN NEGATIVE (Neg); URINE BARBITUATE SCREEN NEGATIVE (Neg); URINE BENZODIAZEPINES SCREEN NEGATIVE (Neg); URINE CANNABINOID SCREEN NEGATIVE (Neg); URINE COCAINE SCREEN NEGATIVE (Neg); URINE METHADONE SCREEN NEGATIVE (Neg); URINE OPIATE SCREEN NEGATIVE (Neg); URINE PHENCYCLIDINE SCREEN NEGATIVE (Neg)
[2023-04-07 23:15] VITALS: BP 138/73; PULSE 64; RESP 16; TEMP 98
[2023-04-07 23:48] VITALS: RESP 16; O2SAT 93
[2023-04-08] VITALS (7 sets, daily range): BP systolic 98–240; BP diastolic 66–90; PULSE 50–68; RESP 13–16; TEMP 97–98.4; O2SAT 93–99
[2023-04-08] MEDS ORDERED: FLU VACC QS2023-24(6MOS UP)/PF 60 MCG/0.5 ML SYRINGE IM ONE (01:15)
[2023-04-08 07:23] LABS: BASOPHILS # (AUTO) 0.1 X10'3 (0-0.2); BASOPHILS % (AUTO) 0.8 % (0-1); EOSINOPHILS # (AUTO) 0.5 X10'3 (0-0.9); EOSINOPHILS % (AUTO) 7.2 % (0-6); HEMATOCRIT 38.5 % (35.0-45.0); HEMOGLOBIN 12.9 g/dl (12.0-16.0); LYMPHOCYTES # (AUTO) 2.3 X10'3 (1.1-4.8); LYMPHOCYTES % (AUTO) 33.3 % (21-51); MEAN CORPUSCULAR HEMOGLOBIN 31.1 PG (27.0-31.0); MEAN CORPUSCULAR HGB CONC 33.5 g/dL (33.0-36.5); MEAN CORPUSCULAR VOLUME 92.7 FL (78-98); MEAN PLATELET VOLUME 7.6 FL (7.4-10.4); MONOCYTES # (AUTO) 0.6 X10'3 (0-0.9); MONOCYTES % (AUTO) 8.9 % (2-12); NEUTROPHILS # (AUTO) 3.4 X10'3 (1.8-7.7); NEUTROPHILS % (AUTO) 49.8 % (42-75); PLATELET COUNT 306 X10'3 (140-440); RED BLOOD COUNT 4.15 X10'6 (4.20-5.60); RED CELL DISTRIBUTION WIDTH 14.1 % (11.5-14.5); WHITE BLOOD COUNT 6.8 X10'3 (4.5-11.0)
[2023-04-08 07:41] LABS: APTT 30 SECONDS (22-32); PROTHROMBIN TIME 10.5 SECONDS (9.0-12.0)
[2023-04-08] MEDS: K and/or MAG REPLACEMENT MC SCH ×2 (08:00→19:34)
[2023-04-08] MEDS: docusate sod 100mg capsule PO SCH ×2 (08:00→19:33)
[2023-04-08 08:17] LABS: ALANINE AMINOTRANSFERASE 16 U/L (12-78); ALBUMIN 3.1 G/DL (3.4-5.0); ALBUMIN/GLOBULIN RATIO 0.8 (1.1-1.5); ALKALINE PHOSPHATASE 118 IU/L (46-116); ANION GAP 5 (8-16); ASPARTATE AMINO TRANSFERASE 11 U/L (10-37); BILIRUBIN,TOTAL 0.5 MG/DL (0.1-1.0); BLOOD UREA NITROGEN 12 MG/DL (7-18); CALCIUM 8.9 MG/DL (8.5-10.1); CHLORIDE 103 MMOL/L (99-107); CHOL/HDL RATIO 3.9 (0.00-4.99); CHOLESTEROL 143 MG/DL (0-200); CREATININE 1.09 MG/DL (0.40-0.90); GLUCOSE 110 MG/DL (70-104); HDL CHOLESTEROL 37 MG/DL (35-60); LDL CHOLESTEROL 70 MG/DL (50-100); POTASSIUM 3.8 MMOL/L (3.5-5.1); SODIUM 138 MMOL/L (135-145); TOTAL CARBON DIOXIDE 29.6 MMOL/L (24-32); TOTAL PROTEIN 6.9 G/DL (6.4-8.2); TRIGLYCERIDES 183 MG/DL (20-135); eCRCL 51 ML/MIN; eGFR 51 ML/MIN
[2023-04-08 08:55] LABS: HEMOGLOBIN A1C 7.1 % (4.5-6.2)
[2023-04-08] MEDS: apixaban 5mg tablet PO SCH ×2 (10:33→19:33)
[2023-04-08] MEDS ORDERED: LORazepam 0.5 MG tablet PO ONE (10:40)
[2023-04-08] MEDS ORDERED: iohexol 350MG/ML 100ml bottle IV ONE (11:34)
[2023-04-08] MEDS: normal saline 1000ml 1,000 ML IV SCH (16:29)
[2023-04-08] MEDS ORDERED: MESSAGE TO PHARMACY PO ONE (17:15)
[2023-04-08] MEDS ORDERED: glucagon, human recombinant 1mg kit SUBCUT PRN (17:15)
[2023-04-08] MEDS ORDERED: dextrose 50%-water 50ml dispensing syringe IV PRN ×2 (17:15)
[2023-04-08] MEDS ORDERED: DEXTROSE 15 GM of carb/4 tabs (each vial/BOTTLE has 4 tablets) PO PRN ×2 (17:15)
[2023-04-08] MEDS ORDERED: insulin Lispro (HumaLOG) vial - multi-dose SQ SCH (17:15)
[2023-04-08] MEDS ORDERED: TIZA-189 PO (18:11)
[2023-04-08] MEDS ORDERED: BUDE10.2 (18:11)
[2023-04-08] MEDS ORDERED: amLODIPine 5mg tablet PO ONE (19:10)
[2023-04-08] MEDS: aspirin 81mg, enteric-coated 1 TAB TABLET.DR PO SCH (19:33)
[2023-04-08] MEDS ORDERED: insulin glargine (Lantus) pen - multi-dose SQ SCH (21:00)
[2023-04-09] VITALS (8 sets, daily range): BP systolic 94–200; BP diastolic 50–92; PULSE 59–85; RESP 13–20; TEMP 97–98.3; O2SAT 92–96
[2023-04-09] MEDS ORDERED: amLODIPine 5mg tablet PO ONE ×3 (00:15→09:55)
[2023-04-09 07:28] LABS: BASOPHILS # (AUTO) 0.1 X10'3 (0-0.2); BASOPHILS % (AUTO) 0.8 % (0-1); EOSINOPHILS # (AUTO) 0.6 X10'3 (0-0.9); EOSINOPHILS % (AUTO) 7.9 % (0-6); HEMATOCRIT 42.7 % (35.0-45.0); HEMOGLOBIN 14.2 g/dl (12.0-16.0); LYMPHOCYTES # (AUTO) 2.2 X10'3 (1.1-4.8); LYMPHOCYTES % (AUTO) 31.2 % (21-51); MEAN CORPUSCULAR HEMOGLOBIN 30.9 PG (27.0-31.0); MEAN CORPUSCULAR HGB CONC 33.2 g/dL (33.0-36.5); MEAN CORPUSCULAR VOLUME 92.9 FL (78-98); MEAN PLATELET VOLUME 7.5 FL (7.4-10.4); MONOCYTES # (AUTO) 0.7 X10'3 (0-0.9); MONOCYTES % (AUTO) 9.5 % (2-12); NEUTROPHILS # (AUTO) 3.6 X10'3 (1.8-7.7); NEUTROPHILS % (AUTO) 50.6 % (42-75); PLATELET COUNT 305 X10'3 (140-440); RED BLOOD COUNT 4.59 X10'6 (4.20-5.60); RED CELL DISTRIBUTION WIDTH 13.9 % (11.5-14.5); WHITE BLOOD COUNT 7.2 X10'3 (4.5-11.0)
[2023-04-09 07:51] LABS: APTT 31 SECONDS (22-32); PROTHROMBIN TIME 10.3 SECONDS (9.0-12.0)
[2023-04-09] MEDS: K and/or MAG REPLACEMENT MC SCH (08:00)
[2023-04-09] MEDS ORDERED: atorvastatin 20mg tablet PO SCH (08:00)
[2023-04-09] MEDS ORDERED: lisinopril 10 MG tablet PO ONE (08:00)
[2023-04-09 08:04] LABS: ALANINE AMINOTRANSFERASE 16 U/L (12-78); ALBUMIN 3.5 G/DL (3.4-5.0); ALBUMIN/GLOBULIN RATIO 0.8 (1.1-1.5); ALKALINE PHOSPHATASE 126 IU/L (46-116); ANION GAP 8 (8-16); ASPARTATE AMINO TRANSFERASE 16 U/L (10-37); BILIRUBIN,TOTAL 0.5 MG/DL (0.1-1.0); BLOOD UREA NITROGEN 12 MG/DL (7-18); BUN/CREATININE RATIO 12.1 (10.0-20.0); CALCIUM 9.4 MG/DL (8.5-10.1); CHLORIDE 103 MMOL/L (99-107); CREATININE 0.99 MG/DL (0.40-0.90); GLUCOSE 129 MG/DL (70-104); PHOSPHORUS 3.5 MG/DL (2.3-4.5); POTASSIUM 3.6 MMOL/L (3.5-5.1); SODIUM 139 MMOL/L (135-145); THYROID STIMULATING HORMONE 1.46 ulU/ml (0.34-4.50); TOTAL CARBON DIOXIDE 28.1 MMOL/L (24-32); TOTAL PROTEIN 7.8 G/DL (6.4-8.2); eCRCL 57 ML/MIN; eGFR 57 ML/MIN
[2023-04-09] MEDS ORDERED: lisinopril 20mg tablet PO ONE (08:25)
[2023-04-09] MEDS: docusate sod 100mg capsule PO SCH (08:30)
[2023-04-09] MEDS: aspirin 81mg, enteric-coated 1 TAB TABLET.DR PO SCH (08:30)
[2023-04-09] MEDS: apixaban 5mg tablet PO SCH (08:30)
[2023-04-09] MEDS ORDERED: NIFEdipine XL 30mg tablet PO ONE (11:55)
[2023-04-09] MEDS ORDERED: EMPA10TA PO (13:59)
[2023-04-09] MEDS ORDERED: NIFE60TA2 PO (13:59)
[2023-04-09] MEDS ORDERED: FLU VACC QS2023-24(6MOS UP)/PF 60 MCG/0.5 ML SYRINGE IM ONE (14:55)
[2023-04-09] MEDS ORDERED: albuterol 2.5 MG/3 ML nebule NEB SCH (20:00)
[2023-04-09] MEDS ORDERED: budesonide 0.5mg/2ml UD nebule IH SCH (20:00)
[2023-04-09] MEDS ORDERED: oxybutynin 5mg tablet PO SCH (21:00)
[2023-04-09] MEDS ORDERED: gabapentin 300mg capsule PO SCH (21:00)
[2023-04-09] MEDS ORDERED: cetirizine 10mg tablet PO SCH (21:00)
[2023-04-09] MEDS ORDERED: duloxetine 30mg CAPSULE.DR PO SCH (21:00)
[2023-04-10] MEDS ORDERED: cyanocobalamin 500mcg tablet PO SCH (08:00)
[2023-04-10] MEDS ORDERED: calcium carbonate 500mg tablet PO SCH (08:00)
[2023-04-10] MEDS ORDERED: cholecalciferol (vitamin D3) 1,000 unit (25mcg) tablet PO SCH (08:00)
[2023-04-10] MEDS ORDERED: lisinopril 20mg tablet PO SCH (08:00)
[2023-04-11 12:02] LABS: GABAPENTIN, SERUM 7.4 ug/mL (4.0-16.0)
== END 2023-04-09 15:45 | disposition home or self-care (01) | DRG 92 ==
LOC: ER 15:22 → ED HOLD 17:00 → PCU 3S 22:50
PROVIDERS: ADMIT Internal Medicine; ATTEND Internal Medicine
PROC: 4A00X4Z Measurement of Central Nervous Electrical Activity, External Approach (ICD-10-PCS; principal; 2023-04-08)
PROC: B3251ZZ Computerized Tomography (CT Scan) of Bilateral Common Carotid Arteries using Low Osmolar Contrast (ICD-10-PCS; 2023-04-08)
PROC: B32G1ZZ Computerized Tomography (CT Scan) of Bilateral Vertebral Arteries using Low Osmolar Contrast (ICD-10-PCS; 2023-04-08)
PROC: B32R1ZZ Computerized Tomography (CT Scan) of Intracranial Arteries using Low Osmolar Contrast (ICD-10-PCS; 2023-04-08)
PROC: B3281ZZ Computerized Tomography (CT Scan) of Bilateral Internal Carotid Arteries using Low Osmolar Contrast (ICD-10-PCS; 2023-04-08)
DX: G92.8 Other toxic encephalopathy (principal); G45.9 Transient cerebral ischemic attack, unspecified; E11.9 Type 2 diabetes mellitus without complications; E78.00 Pure hypercholesterolemia, unspecified; J45.909 Unspecified asthma, uncomplicated; F32.A Depression, unspecified; E78.5 Hyperlipidemia, unspecified; R07.89 Other chest pain; I10 Essential (primary) hypertension; I48.0 Paroxysmal atrial fibrillation; T50.905A Adverse effect of unspecified drugs, medicaments and biological substances, initial encounter; F03.90 Unspecified dementia, unspecified severity, without behavioral disturbance, psychotic disturbance, mood disturbance, and anxiety; K21.9 Gastro-esophageal reflux disease without esophagitis; G89.29 Other chronic pain; I25.10 Atherosclerotic heart disease of native coronary artery without angina pectoris; R00.1 Bradycardia, unspecified; I25.2 Old myocardial infarction; Z87.11 Personal history of peptic ulcer disease; Z90.49 Acquired absence of other specified parts of digestive tract; Z80.41 Family history of malignant neoplasm of ovary; Z82.49 Family history of ischemic heart disease and other diseases of the circulatory system; Y92.89 Other specified places as the place of occurrence of the external cause; Z88.0 Allergy status to penicillin; Z88.2 Allergy status to sulfonamides; Z88.8 Allergy status to other drugs, medicaments and biological substances; Z91.018 Allergy to other foods; Z79.899 Other long term (current) drug therapy; Z79.82 Long term (current) use of aspirin; Z79.01 Long term (current) use of anticoagulants; I69.334 Monoplegia of upper limb following cerebral infarction affecting left non-dominant side
CPT/HCPCS: 36415; 70450; 70496; 70498; 70551; 71045; 80053; 80061; 80305; 81001; 82948; 83036; 83735; 83880; 84100; 84443; 84484; 85025; 85610; 85730; 87081; 90686; 93005; 93306; 95816; 99285; A4615; G0378; J1815; J3490; J7030; Q9967

== ENCOUNTER 2023-06-20 14:26 | Inpatient (IN) | payer MEDICARE, MEDICAID ==
[~2023-06-20] VITALS: Ht 170.2 cm; Wt 95.8 kg
[~2023-06-20 14:26] MED LIST changes: -AZI25OT PO; +BUDE10.2; +EMPA10TA PO; +NIFE60TA2 PO; -OXYB5TAB16 PO; +OXYB5TAB21 PO; +TIZA-189 PO
[2023-06-20 14:53] LABS: BASOPHILS # (AUTO) 0.1 X10'3 (0-0.2); BASOPHILS % (AUTO) 0.9 % (0-1); EOSINOPHILS # (AUTO) 0.3 X10'3 (0-0.9); EOSINOPHILS % (AUTO) 3.7 % (0-6); HEMATOCRIT 39.1 % (35.0-45.0); HEMOGLOBIN 13.1 g/dl (12.0-16.0); LYMPHOCYTES # (AUTO) 3.2 X10'3 (1.1-4.8); LYMPHOCYTES % (AUTO) 36.9 % (21-51); MEAN CORPUSCULAR HEMOGLOBIN 30.9 PG (27.0-31.0); MEAN CORPUSCULAR HGB CONC 33.5 g/dL (33.0-36.5); MEAN CORPUSCULAR VOLUME 92.2 FL (78-98); MEAN PLATELET VOLUME 7.2 FL (7.4-10.4); MONOCYTES # (AUTO) 0.6 X10'3 (0-0.9); MONOCYTES % (AUTO) 7.4 % (2-12); NEUTROPHILS # (AUTO) 4.4 X10'3 (1.8-7.7); NEUTROPHILS % (AUTO) 51.1 % (42-75); PLATELET COUNT 392 X10'3 (140-440); RED BLOOD COUNT 4.24 X10'6 (4.20-5.60); WHITE BLOOD COUNT 8.6 X10'3 (4.5-11.0)
[2023-06-20 15:15] LABS: ALBUMIN 3.5 G/DL (3.4-5.0); ANION GAP 9 (8-16); BLOOD UREA NITROGEN 13 MG/DL (7-18); BUN/CREATININE RATIO 12.9 (10.0-20.0); CALCIUM 9.5 MG/DL (8.5-10.1); CHLORIDE 98 MMOL/L (99-107); CREATININE 1.01 MG/DL (0.40-0.90); GLUCOSE 99 MG/DL (70-104); POTASSIUM 4.6 MMOL/L (3.5-5.1); PRO BRAIN NATRIURETIC PEPTIDE 1598 PG/ML (0-125); SODIUM 134 MMOL/L (135-145); TOTAL CARBON DIOXIDE 27.3 MMOL/L (24-32); eCRCL 55 ML/MIN; eGFR 55 ML/MIN
[2023-06-20 15:16] LABS: MAGNESIUM 2.2 MG/DL (1.5-2.4)
[2023-06-20] MEDS ORDERED: potassium Cl 40MEQ/1/2NS 520ml 520 ML IV PRN (15:40)
[2023-06-20] MEDS ORDERED: potassium Cl 20 mEq SR tablet PO PRN ×2 (15:40)
[2023-06-20] MEDS ORDERED: ondansetron/PF 4mg/2ml inj IV PRN (15:40)
[2023-06-20] MEDS ORDERED: magnesium Cl slow-release 64mg tablet PO PRN (15:40)
[2023-06-20] MEDS ORDERED: magnesium 4gm in 100ml NS 100 ML IV PRN (15:40)
[2023-06-20] MEDS ORDERED: magnesium 2GM in 50ml NS 50 ML IV PRN (15:40)
[2023-06-20] MEDS ORDERED: NICO-669 BC (15:47)
[2023-06-20] MEDS ORDERED: NIFE-33 PO (15:47)
[2023-06-20] MEDS: PERFLUTREN PROTEIN-A MICROSPHR (Optison) 0.22 MG/ML 3ML VIAL IV ONE (15:57)
[2023-06-20] MEDS: normal saline 1000ml 1,000 ML IV SCH (16:27)
[2023-06-20 18:00] VITALS: BP 154/67; PULSE 69; RESP 16; TEMP 97; O2SAT 93
[2023-06-20] MEDS: heparin, porcine 5000 units/ml vial SQ SCH (19:41)
[2023-06-20 20:00] VITALS: RESP 16; O2SAT 94
[2023-06-20] MEDS: K and/or MAG REPLACEMENT MC SCH (20:00)
[2023-06-20] MEDS: temazepam 15mg capsule PO PRN (21:47)
[2023-06-20 22:00] VITALS: BP 136/67; PULSE 67; RESP 16; TEMP 97.8; O2SAT 95
[2023-06-21] VITALS (9 sets, daily range): BP systolic 131–198; BP diastolic 63–90; PULSE 61–79; RESP 12–18; TEMP 97.7–98.5; O2SAT 93–97
[2023-06-21 07:54] LABS: BASOPHILS # (AUTO) 0.1 X10'3 (0-0.2); BASOPHILS % (AUTO) 0.8 % (0-1); EOSINOPHILS # (AUTO) 0.4 X10'3 (0-0.9); EOSINOPHILS % (AUTO) 4.6 % (0-6); HEMOGLOBIN 13.2 g/dl (12.0-16.0); LYMPHOCYTES # (AUTO) 2.5 X10'3 (1.1-4.8); LYMPHOCYTES % (AUTO) 32.5 % (21-51); MEAN CORPUSCULAR HEMOGLOBIN 31.1 PG (27.0-31.0); MEAN CORPUSCULAR HGB CONC 33.8 g/dL (33.0-36.5); MEAN PLATELET VOLUME 7.4 FL (7.4-10.4); MONOCYTES # (AUTO) 0.6 X10'3 (0-0.9); MONOCYTES % (AUTO) 7.8 % (2-12); NEUTROPHILS # (AUTO) 4.2 X10'3 (1.8-7.7); NEUTROPHILS % (AUTO) 54.3 % (42-75); PLATELET COUNT 364 X10'3 (140-440); RED BLOOD COUNT 4.24 X10'6 (4.20-5.60); RED CELL DISTRIBUTION WIDTH 15.4 % (11.5-14.5); WHITE BLOOD COUNT 7.7 X10'3 (4.5-11.0)
[2023-06-21 08:15] LABS: ALBUMIN 3.3 G/DL (3.4-5.0); ANION GAP 7 (8-16); BLOOD UREA NITROGEN 9 MG/DL (7-18); BUN/CREATININE RATIO 9.6 (10.0-20.0); CALCIUM 9.3 MG/DL (8.5-10.1); CHLORIDE 103 MMOL/L (99-107); CREATININE 0.94 MG/DL (0.40-0.90); GLUCOSE 132 MG/DL (70-104); MAGNESIUM 2.1 MG/DL (1.5-2.4); POTASSIUM 4.1 MMOL/L (3.5-5.1); SODIUM 140 MMOL/L (135-145); TOTAL CARBON DIOXIDE 29.9 MMOL/L (24-32); eCRCL 60 ML/MIN; eGFR 60 ML/MIN
[2023-06-21] MEDS: acetaminophen 325mg tablet PO PRN (12:57)
[2023-06-21] MEDS: apixaban 5mg tablet PO SCH (19:20)
[2023-06-21] MEDS: lisinopril 20mg tablet PO SCH (20:09)
[2023-06-21] MEDS: atorvastatin 20mg tablet PO SCH (20:09)
[2023-06-21] MEDS: NIFEdipine XL 30mg tablet PO SCH (20:09)
[2023-06-22] MEDS: hydrALAZINE 20mg/ml inj. IV PRN (01:55)
[2023-06-22 02:04] VITALS: BP 196/72; PULSE 69; RESP 16; TEMP 98.2; O2SAT 96
[2023-06-22 02:41] VITALS: BP 151/67; PULSE 81; RESP 16; O2SAT 95
[2023-06-22 06:00] VITALS: BP 139/82; PULSE 76; RESP 10; TEMP 97.8; O2SAT 96
[2023-06-22 07:17] LABS: BASOPHILS % (AUTO) 0.7 % (0-1); EOSINOPHILS # (AUTO) 0.3 X10'3 (0-0.9); EOSINOPHILS % (AUTO) 3.9 % (0-6); HEMATOCRIT 42.1 % (35.0-45.0); HEMOGLOBIN 14.2 g/dl (12.0-16.0); LYMPHOCYTES # (AUTO) 2.3 X10'3 (1.1-4.8); LYMPHOCYTES % (AUTO) 31.6 % (21-51); MEAN CORPUSCULAR HEMOGLOBIN 31.1 PG (27.0-31.0); MEAN CORPUSCULAR HGB CONC 33.7 g/dL (33.0-36.5); MEAN CORPUSCULAR VOLUME 92.1 FL (78-98); MEAN PLATELET VOLUME 7.4 FL (7.4-10.4); MONOCYTES # (AUTO) 0.6 X10'3 (0-0.9); MONOCYTES % (AUTO) 8.1 % (2-12); NEUTROPHILS # (AUTO) 4.2 X10'3 (1.8-7.7); NEUTROPHILS % (AUTO) 55.7 % (42-75); PLATELET COUNT 368 X10'3 (140-440); RED BLOOD COUNT 4.57 X10'6 (4.20-5.60); RED CELL DISTRIBUTION WIDTH 15.8 % (11.5-14.5); WHITE BLOOD COUNT 7.4 X10'3 (4.5-11.0)
[2023-06-22 07:43] LABS: ALBUMIN 3.5 G/DL (3.4-5.0); ANION GAP 8 (8-16); BLOOD UREA NITROGEN 12 MG/DL (7-18); CALCIUM 9.5 MG/DL (8.5-10.1); CHLORIDE 103 MMOL/L (99-107); CREATININE 0.92 MG/DL (0.40-0.90); GLUCOSE 147 MG/DL (70-104); MAGNESIUM 2.2 MG/DL (1.5-2.4); POTASSIUM 3.8 MMOL/L (3.5-5.1); SODIUM 138 MMOL/L (135-145); eCRCL 61 ML/MIN; eGFR 62 ML/MIN
[2023-06-22 08:00] VITALS: RESP 76; O2SAT 96
[2023-06-22 11:00] VITALS: BP 160/87; PULSE 79; RESP 15; TEMP 98.2; O2SAT 97
[2023-06-22] MEDS: duloxetine 30mg CAPSULE.DR PO SCH (13:35)
[2023-06-22] MEDS: ALPRAZolam 0.25mg tablet PO PRN (14:54)
== END 2023-06-22 15:45 | disposition home or self-care (01) | DRG 310 ==
LOC: ER 14:27 → ED HOLD 15:52 → OBSVTOIN 15:52 → EDBEDREQ 16:52 → PCU 3S 17:54
PROVIDERS: ADMIT Internal Medicine; ATTEND Internal Medicine
DX: R00.1 Bradycardia, unspecified (principal); E11.9 Type 2 diabetes mellitus without complications; I10 Essential (primary) hypertension; I48.0 Paroxysmal atrial fibrillation; E78.00 Pure hypercholesterolemia, unspecified; F32.A Depression, unspecified; J45.909 Unspecified asthma, uncomplicated; K21.9 Gastro-esophageal reflux disease without esophagitis; I25.10 Atherosclerotic heart disease of native coronary artery without angina pectoris; R32 Unspecified urinary incontinence; F17.210 Nicotine dependence, cigarettes, uncomplicated; F03.90 Unspecified dementia, unspecified severity, without behavioral disturbance, psychotic disturbance, mood disturbance, and anxiety; Z90.49 Acquired absence of other specified parts of digestive tract; Z86.73 Personal history of transient ischemic attack (TIA), and cerebral infarction without residual deficits; Z87.11 Personal history of peptic ulcer disease; I25.2 Old myocardial infarction; Z82.49 Family history of ischemic heart disease and other diseases of the circulatory system; Z80.41 Family history of malignant neoplasm of ovary; Z88.0 Allergy status to penicillin; Z88.2 Allergy status to sulfonamides; Z88.8 Allergy status to other drugs, medicaments and biological substances; Z91.018 Allergy to other foods; Z90.710 Acquired absence of both cervix and uterus; Z98.891 History of uterine scar from previous surgery; Z79.899 Other long term (current) drug therapy
CPT/HCPCS: 36415; 71045; 80048; 83735; 83880; 84484; 85025; 87081; 93005; 93306; 99291; G0378; J0360; J1644; J7030

== ENCOUNTER 2024-10-28 09:53 | Outpatient (CLI) | payer MEDICARE, MEDICAID ==
[~2024-10-28 09:53] MED LIST changes: +ALBU18HF2 INH; -ASPI-1071 PO; -BUDE10.2; -BUDE10.22 INH; +CLOP-32 PO; +FLUT1AER INH; -NICO-907 BC; +NIFE-33 PO; -NIFE60TA2 PO; -NOR5T PO; -OXYB5TAB21 PO; +PANT-47 PO; -PANT40TA54 PO; -SOTA80TA73 PO
--- NOTE | 2024-10-28 11:55 | VASCULAR REPORT ---
DUPLEX BILATERAL LOWER EXTREMITY ARTERIAL ULTRASOUND WITH BONI: HISTORY: Pain COMPARISON: VASC VL ARTERIAL on DOS: 10/08/24 TECHNIQUE: Real-time grayscale, color-flow and doppler ultrasound evaluation of the left upper extrem ity FINDINGS: LEFT: No significant atherosclerotic plaque. Triphasic waveforms in the subclavian artery, actually artery, brachial artery, box truck owner operator artery, and rad ial artery In the left medial distal biceps, medial to the ovidio, there is a 4.3 x 1.7 cm fluid collection wit hout intrinsic hypervascularity. IMPRESSION: No hemodynamically significant stenosis in the left upper extremity arterial vasculature. 4.3 cm avascular fluid collection in the left medial bicipital area adjacent to the staple line which may represent a hematoma. Less likely abscess.
== END 2024-10-28 23:59 | disposition home or self-care (01) ==
LOC: VAS 09:53
PROVIDERS: ATTEND Surgery
DX: I72.1 Aneurysm of artery of upper extremity (principal)
CPT/HCPCS: 93931

== ENCOUNTER 2025-01-13 22:56 | Inpatient (IN) | payer MEDICARE, MEDICAID ==
[~2025-01-13] VITALS: Ht 170.2 cm; Wt 92.0 kg
[~2025-01-13 22:56] MED LIST changes: -LISI40TA13 PO; +LISI40TA20 PO
[2025-01-13 23:24] LABS: MEAN PLATELET VOLUME 6.9 FL (7.4-10.4); RED CELL DISTRIBUTION WIDTH 15.4 % (11.5-14.5)
[2025-01-13 23:39] LABS: CREATININE 1.45 MG/DL (0.40-0.90); PRO BRAIN NATRIURETIC PEPTIDE 766 PG/ML (0-125); TOTAL CARBON DIOXIDE 27.2 MMOL/L (24-32); eCRCL 38 ML/MIN; eGFR 36 ML/MIN
--- NOTE | 2025-01-13 23:47 | RADIOLOGY REPORT ---
CHEST RADIOGRAPH Indication: shortness of breath Technique: Frontal and lateral view of the chest was obtained Comparison: DI CHEST,SINGLE VIEW on DOS: 10/11/24, DI CHEST,SINGLE VIEW on DOS: 10/11/24, DI CHEST,SINGLE VIEW on DOS: 10/08/24, DI CHEST,SINGLE VIEW on DOS: 06/20/23, DI CHEST,SINGLE VIEW on DOS: 04/07/23 FINDINGS: Lines and Tubes: None Lungs: Mild bibasilar pulmonary airspace disease and probable small bilateral pleural effusions. No pneumothorax. Cardiomediastinal contours: Unremarkable Bones: Unremarkable IMPRESSION: 1. Mild bibasilar pulmonary airspace disease and probable small bilateral pleural effusions.
[2025-01-14] VITALS (12 sets, daily range): BP systolic 98–113; BP diastolic 53–56; PULSE 68–84; RESP 12–20; TEMP 98.7–100.1; O2SAT 90–97
[2025-01-14] MEDS: ipratropium/albuterol 3ml nebule NEB ONE (01:36)
--- NOTE | 2025-01-14 01:42 | Physician Documentation ---
History of Present Illness ~ Chief Complaint: Shortness of Breath Stated Complaint: SOB A ALS Time Seen by MD: 01:13 Primary Medical Doctor: Calista Vasquez [facility] Mode of Arrival: EMS, Stretcher HPI Patient presents to the emergency room for evaluation of shortness of breath. Patient was history of asthma and continues to smoke. She has seen on Saturday at the [facility] and prescribed antibiotics but feels she is getting worse. On 3 L of home O2 at night. Now requiring oxygen. Medication Reconciliation Allergies: Coded Allergies: Penicillins (Verified Allergy, Severe, 01/13/25) Sulfa (Sulfonamide Antibiotics) (Verified Allergy, Severe, 01/13/25) carisoprodol (Verified Allergy, Severe, 01/13/25) avocado (Unverified Allergy, Intermediate, 01/13/25) ITCHING BETWEEN FINGERS acosta (Unverified Allergy, Intermediate, 01/13/25) RASH ALL OVER BODY pineapple (Unverified Allergy, Intermediate, 01/13/25) BLISTERS AND SWELLING IN MOUTH [place] And Derivatives (Verified Allergy, Unknown, 10/08/24) Uncoded Allergies: LYE (Allergy, Unknown, 10/20/19) Scheduled Apixaban (Eliquis), 1 TAB PO Q12H, (Reported) Atorvastatin Calcium (Atorvastatin Calcium), 1 TAB PO DAILY, (Reported) Calcium Carbonate (Calcium), 1,000 MG PO DAILY, (Reported) Cetirizine HCl (Cetirizine HCl), 1 TAB PO QPM, (Reported) Cholecalciferol (Vitamin D3) (Vitamin D3), 1 TAB PO DAILY, (Reported) Clopidogrel Bisulfate (Plavix), 1 TAB PO QPM, (Reported) Cyanocobalamin (Vitamin B-12) (Vitamin B-12), 1 TAB PO DAILY, (Reported) Duloxetine HCl (Duloxetine HCl), 1 CAP PO BID, (Reported) Empagliflozin (Jardiance), 1 TAB PO DAILY, (Reported) Fluticasone/Vilanterol (Breo Ellipta 100-25 Mcg INH), 1 PUFFS INH DAILY, (Reported) Gabapentin (Neurontin), 300 MG PO QAM, (Reported) Gabapentin (Neurontin), 600 MG PO QPM, (Reported) Lisinopril* (Lisinopril*), 1 TAB PO DAILY, (Reported) Metformin HCl (Metformin HCl), 1 TAB PO BID, (Reported) Nifedipine ER* (Nifedipine Er*), 1 TAB PO DAILY, (Reported) Pantoprazole Sodium (PROTONIX tablet), 1 TAB PO DAILY, (Reported) Scheduled PRN Albuterol Sulfate (Ventolin Hfa), 2 PUFFS INH Q4HPRN PRN for wheezing, (Reported) Tizanidine Hcl (Zanaflex), 1 TAB PO Q8H PRN for muscle spasms, (Reported) Past Medical History Past Medical History: CVA/TIA/Stroke, Dementia, *CARDIOVASCULAR*, Atrial Fibrillation, Coronary Artery Disease, High Cholesterol, Myocardial Infarction, *PULMONARY*, Asthma, Previously Intubated, GERD, GI Bleed, Peptic Ulcer Disease, Diabetes, Chronic Back Pain, Fibromyalgia, Depression Past Surgical History: appendectomy, orthopedic surgeries Patient History: (Cancer) Malignant carcinoid tumor ([place]) Myocardial infarction FATHER (UNKNOWN), , Age: 30's - 40, Cause: [place] (myocardial infarction) FH: ovarian cancer Smoking Status: Current every day smoker Alcohol Use: Rarely Drug Use: none Lives with: Alone Lives In: Home Review of Systems ROS All review of systems negative except as per HPI Physical Exam Vital Signs: Temperature: 97.6, Source: Temporal, Heart Rate: 64, Respiratory Rate: 15, BP: 144/61, Pulse Oximetry: 95, Weight: 92.000 Oxygen Flow Rate: 0 Physical Exam General: Patient is awake, alert, oriented x4 in no acute distress. On nasal cannula Head: Normocephalic and atraumatic. Eyes: Conjunctival normal. EOMI. PERRL. ENT: Mucous membranes moist. Neck: Supple, trachea is midline. Chest: Coarse breath sounds bilaterally with mild expiratory wheezing bilateral ly. There is no accessory muscle use or retractions. Cardiac: RRR without murmurs, gallops, or rubs. Progress Results/Orders Results/Orders Orders - AASHISH SHANKAR MD Chest,Two Views (01/13/25 23:15) Culture Blood (01/13/25 23:15) Saline Lock (01/13/25 23:15) Oxygen (01/13/25 23:15) Electrocardiogram (01/13/25 ) Svn Treatment (01/14/25 01:28) Azithromycin/Ns 500mg/250ml (Zithromax/N (01/14/25 01:30) Page Hospitalist (01/14/25 01:42) Fill Out Med Reconciliation (01/14/25 01:42) Completed Orders - AASHISH SHANKAR MD Chest,Two Views (01/13/25 23:15) Cbc/Diff (01/13/25 23:15) BMP (01/13/25 23:15) PBNP (01/13/25 23:15) Lacticsepsis (01/13/25 23:15) Ipratropium/Albuterol Nebule (Ipratrop/A (01/14/25 01:30) Furosemide Inj (Lasix Inj) (01/14/25 01:30) Ceftriaxone/H1x-Fkbcmjld 1gm (Rocephin 1 (01/14/25 01:30) Medications Received in ER Medications (Trade) Dose Ordered Sig/Darek Route PRN Reason Start Time Stop Time Status Last Admin Dose Admin (ipratrop/ albuterol 0.5-3(2.5) MG/3ml nebule) 3 ml ONCE ONCE NEB 01/14/25 01:30 01/14/25 01:31 DC 01/14/25 01:36 3 ML (Lasix inj) 20 mg ONCE ONCE IV 01/14/25 01:30 01/14/25 01:31 DC 01/14/25 01:58 20 MG Azithromycin 250 ml @ 250 mls/hr ONCE ONCE IV 01/14/25 01:30 01/14/25 02:29 01/14/25 01:58 250 MLS/HR Ceftriaxone Sodium 50 ml @ 100 mls/hr ONCE ONCE IV 01/14/25 01:30 01/14/25 01:59 DC 01/14/25 01:58 100 MLS/HR Vital Signs 01/13/25 01/13/25 01/14/25 01/14/25 23:09 23:13 00:10 01:37 Temp 97.6 Pulse 65 64 70 Resp 22 15 20 B/P (MAP) 131/94 144/61 (88) Pulse Ox 95 95 95 94 O2 Delivery Nasal Cannula* Nasal Cannula* O2 Flow Rate 6.0 6 0 5 FiO2 44 N/A 01/14/25 01:46 Pulse 72 Resp 16 Pulse Ox 97 O2 Delivery Nasal Cannula* O2 Flow Rate 5 FiO2 N/A Laboratory Tests Test 01/13/25 23:07 White Blood Count 8.7 Red Blood Count 3.73 L Hemoglobin 10.1 L Hematocrit 30.3 L Mean Corpuscular Volume 81.4 Mean Corpuscular Hemoglobin 27.2 Mean Corpuscular Hemoglobin Concent 33.4 Red Cell Distribution Width 15.4 H Platelet Count 470 H Mean Platelet Volume 6.9 L Neutrophils (%) (Auto) 61.0 Lymphocytes (%) (Auto) 23.1 Monocytes (%) (Auto) 11.4 Eosinophils (%) (Auto) 4.4 Basophils (%) (Auto) 0.1 Neutrophils # (Auto) 5.3 Lymphocytes # (Auto) 2.0 Monocytes # (Auto) 1.0 H Eosinophils # (Auto) 0.4 Basophils # (Auto) 0.0 CBC Comment Sodium Level 132 L Potassium Level 4.7 Chloride Level 97 L Carbon Dioxide Level 27.2 Anion Gap 8 Blood Urea Nitrogen 18 Creatinine 1.45 H Estimated GFR/1.73 m2 36 BUN/Creatinine Ratio 12.4 Glucose Level 116 H Lactic Acid Level 1.3 Calcium Level 8.8 Pro-B-Type Natriuretic Peptide 766 H Albumin 3.0 L Chemistry Comments Microbiology Date/Time Source Procedure Growth Status 01/13/25 23:44 Blood Hand Left Blood Culture - Preliminary NEGATIVE (LESS THAN 24 HOURS) Resulted EKG/XRAY/CT/US/VASC/MRI EKG : Additional Comment EKG interpreted by myself shows time of 07/23/2002, rate 60, sinus rhythm, normal axis, no ST changes Chest X-Ray : Additional Comments Exam: CHEST,TWO VIEWS CHEST RADIOGRAPH Indication: shortness of breath Technique: Frontal and lateral view of the chest was obtained Comparison: DI CHEST,SINGLE VIEW on DOS: 10/11/24, DI CHEST,SINGLE VIEW on DOS: 10/11/24, DI CHEST,SINGLE VIEW on DOS: 10/08/24, DI CHEST,SINGLE VIEW on DOS: 06/20/23, DI CHEST,SINGLE VIEW on DOS: 04/07/23 FINDINGS: Lines and Tubes: None Lungs: Mild bibasilar pulmonary airspace disease and probable small bilateral pleural effusions. No pneumothorax. Cardiomediastinal contours: Unremarkable Bones: Unremarkable IMPRESSION: 1. Mild bibasilar pulmonary airspace disease and probable small bilateral pleural effusions. Medical Decision Making Findings Patient presents to the emergency room with chief complaint of shortness of breath. Differentials include but are not limited to COPD exacerbation, CHF exacerbation, asthma exacerbation, pneumonia therefore emergent labs and imaging indicated. No elevation of white blood cell count. Elevation of BNP with x-ray suspicious for effusion I do believe that has an element of heart failure. As she is requiring additional oxygen supplementation we will admit her for further treatment. DuoNeb ordered. Departure Admitted to Inpatient Unit: yes, to hospitalist Impression: Primary Impression: Respiratory failure Condition: Guarded Referrals: NO PRIMARY CARE PROVIDER (PCP) Signature Scribe Signature: No scribe Attestation: The note accurately reflects work and decisions made by me.Aashish Shankar MD 01/14/25 01:42 AASHISH SHANKAR MD Jan 14, 2025 01:42
[2025-01-14] MEDS: furosemide 10 MG/1 ML 10ml inj IV ONE (01:58)
[2025-01-14] MEDS: azithromycin/NS 500mg/250ml 250 ML IV ONE (01:58)
[2025-01-14] MEDS: CefTRIAXone/D5W-Rocephin 1gm 50 ML IV ONE (01:58)
[2025-01-14] MEDS ORDERED: potassium Cl 40MEQ/1/2NS 520ml 520 ML IV PRN (02:05)
[2025-01-14] MEDS ORDERED: magnesium Cl slow-release 64mg tablet PO PRN (02:05)
[2025-01-14] MEDS ORDERED: magnesium hydroxide 30ml (MOM) UD suspension PO PRN (02:05)
[2025-01-14] MEDS ORDERED: magnesium sulf-water 4G/100mL 100 ML IV PRN (02:05)
[2025-01-14] MEDS ORDERED: ondansetron/PF 4mg/2ml inj IV PRN (02:05)
[2025-01-14] MEDS ORDERED: mag hydrox/Alum hydrox/simeth 30ml oral suspension PO PRN (02:05)
[2025-01-14] MEDS ORDERED: magnesium sulf-water 2g/50mL 50 ML IV PRN (02:05)
[2025-01-14] MEDS ORDERED: potassium Cl 20 mEq SR tablet PO PRN ×2 (02:05)
[2025-01-14 02:26] LABS: INR 1.1 INR
[2025-01-14] MEDS ORDERED: ipratropium/albuterol 3ml nebule NEB PRN (03:15)
--- NOTE | 2025-01-14 03:35 | HISTORY AND PHYSICAL-Residence ---
History & Physical Providers to CC Resident Creating Document: NEENA COLON, RES ~ History of Present Illness Primary Medical Doctor: Calista Vasquez [facility] Reason for Admit\Complaint: COPD exacerbation History of Present Illness The patient is a 64-year-old female with past medical history of fibromyalgia, asthma, AFib, mitral valve prolapse, diabetes mellitus, chronic back pain, GERD, hyperlipidemia, CAD, presented to the ED with complaints of difficulty breathing. Symptoms started on Saturday, patient went to her PCP and was prescribed antibiotics. She is compliant with her antibiotics and inhalers but is still feeling short of breath. Patient is on 3 L of oxygen at night for sleep apnea and is now requiring 5 L of oxygen through nasal cannula. Reports dry cough since Saturday, chest and back pain associated with cough and deep inspiration, nausea. No complaint of fevers, palpitations, vomiting, diarrhea, constipation, burning micturition. Allergies: Coded Allergies: Penicillins (Verified Allergy, Severe, 01/13/25) Sulfa (Sulfonamide Antibiotics) (Verified Allergy, Severe, 01/13/25) carisoprodol (Verified Allergy, Severe, 01/13/25) avocado (Unverified Allergy, Intermediate, 01/13/25) ITCHING BETWEEN FINGERS acosta (Unverified Allergy, Intermediate, 01/13/25) RASH ALL OVER BODY pineapple (Unverified Allergy, Intermediate, 01/13/25) BLISTERS AND SWELLING IN MOUTH Blairs And Derivatives (Verified Allergy, Unknown, 10/08/24) Uncoded Allergies: LYE (Allergy, Unknown, 10/20/19) Home Medications Home Medications Active Reported PROTONIX tablet (Pantoprazole Sodium) 40 Mg Tablet.dr 1 Tab PO DAILY 30 Days Jardiance (Empagliflozin) 10 Mg Tablet 1 Tab PO DAILY 30 Days Zanaflex (Tizanidine HCl) 2 Mg Tablet 1 Tab PO Q8H PRN 30 Days Ventolin Hfa (Albuterol Sulfate) 90 Mcg Hfa.aer.ad 2 Puffs INH Q4HPRN PRN 30 Days Neurontin (Gabapentin) 300 Mg Capsule 600 Mg PO QPM Plavix (Clopidogrel Bisulfate) 75 Mg Tablet 1 Tab PO QPM Neurontin (Gabapentin) 300 Mg Capsule 300 Mg PO QAM Breo Ellipta 100-25 Mcg INH (Fluticasone/Vilanterol) 100 Mcg-25 Mcg/Dose Aer.pow.ba 1 Puffs INH DAILY Nifedipine Er* (Nifedipine) 60 Mg Tab.er2.24 1 Tab PO DAILY Atorvastatin Calcium 40 Mg Tablet 1 Tab PO DAILY Vitamin B-12 (Cyanocobalamin (Vitamin B-12)) 1,000 Mcg Tablet 1 Tab PO DAILY 30 Days Lisinopril* (Lisinopril) 40 Mg Tablet 1 Tab PO DAILY Calcium (Calcium Carbonate) 500 Mg Calcium (1250 Mg) Tablet 1,000 Mg PO DAILY 30 Days Vitamin D3 (Cholecalciferol (Vitamin D3)) 50 Mcg Tablet 1 Tab PO DAILY Eliquis (Apixaban) 5 Mg Tablet 1 Tab PO Q12H 30 Days Duloxetine HCl 60 Mg Capsule. 1 Cap PO BID Cetirizine HCl 10 Mg Tablet 1 Tab PO QPM Metformin HCl 500 Mg Tablet 1 Tab PO BID Past Medical History Past Medical History Asthma COPD Atrial fibrillation Mitral valve prolapse Neuropathy Diabetes mellitus Fibromyalgia History of CVA with residual left-sided weakness Hypertension Generalized weakness Past Surgical History Surgical History Comment Left brachial artery pseudoaneurysm repair, October 2024 Hysterectomy Back surgery Appendectomy Family History Family History: (Cancer) Malignant carcinoid tumor ([place]) Myocardial infarction FATHER (UNKNOWN), , Age: 30's - 40, Cause: [place] (myocardial infarction) FH: ovarian cancer Past Social History Social History Comment Patient lives with her granddaughter in [facility]. Ambulates using a cane or a walker only when needed. PCP - Calista Vasquez Claim Taker - Dr. Erick Shepherd Substance use history: Smokes one pack of cigarettes per day. Has been smoking since she was 11. Denies alcohol consumption and other illicit drug abuse. Smoking: Cigarettes Alcohol Use: Rarely Drug Use: None Lives with: Alone Lives In: Home ROS ROS Constitutional: No fever, dizziness, weakness. no change in appetite/weight HEENT: No blurring of the vision, No sore throat, epistaxis, tinnitus Cardiovascular: Reports chest pain/discomfort, no palpitations, syncope. No pedal edema Respiratory: Reports sob, cough, no hemoptysis Gastrointestinal: Reports nausea, No abdominal pain, vomiting. No diarrhea, constipation, melena. Genitourinary: No frquency, urgency, incontinence, nocturia. No dysuria, hematuria Musculoskeletal: No arthralgia, myalgia Endocrine: No fatigue, polydipsia, polyuria. No heat or cold intolerance Neurologic: No headache, vertigo. No weakness, numbness or tingling of extremities Psychiatric: No hallucinations/delusions, no anhedonia, no suicidal ideation Exam Vitals: Vital Signs Date Time Temp Pulse Resp B/P (MAP) Pulse Ox O2 Delivery O2 Flow Rate FiO2 01/14/25 01:46 72 16 97 Nasal Cannula* 5 N/A 01/14/25 00:10 144/61 (88) 01/13/25 23:09 97.6 General: Elderly female, alert and orientated, not in acute distress Head: Normocephalic with an atraumatic Eyes: Pupils- 3mm, reacting to light, conjunctiva- anicteric Nose and throat: No polyps, septum- normal, no mucosal ulcers Neck: Supple, no lymphadenopathy, no carotid bruit Respiratory: Diminished breath sounds bilaterally, expiratory wheeze heard Cardiac: S1-S2 heard, rhythm regular, ejection systolic murmur in the aortic region Abdomen: non distended, no tenderness, no organomegaly, bowel sounds - heard Extremities: no clubbing, no pedal edema, no deformities, peripheral pulses - 2+ Skin: warm and dry, no rash, no purpura Neuro: No focal deficit, gross cranial nerve exam - normal Diagnostic Data Last Recorded Lab Results: [id number]/[id number] Diagnostic Data: Laboratory Tests Test 01/13/25 23:07 Prothrombin Time 10.8 SECONDS (9.0-12.0) INR International Normalized Ratio 1.1 INR Coagulation Comments Counseling Services Smoking & Tobacco Cessation: > 10 Minutes Advance Care Planning Advanced Care plannin - 30 Minutes Additional Plan Acute on chronic hypoxemic respiratory failure Acute exacerbation of COPD Possible community-acquired pneumonia Possible asthma exacerbation Patient currently requiring 5 L of oxygen through nasal cannula. X-ray chest showed mild bibasilar pulmonary airspace disease and probable small bilateral pleural effusions. Normal white count, normal procalcitonin lactic acid. Started the patient on Solu-Medrol 125 mg stat dose followed by 60 mg b.i.d. Ipratropium/albuterol nebulizations q.4h scheduled and q.2h PRN. IV ceftriaxone 1 g daily and IV azithromycin 500 mg daily. RT evaluate and treat. Dimer within normal limits. PE ruled out. Paroxysmal atrial fibrillation Continue Eliquis 5 mg b.i.d. Currently not on any rhythm or rate controlling medication. Currently in sinus rhythm. Hypertension Continue lisinopril 40 mg daily, nifedipine 60 mg daily. Diabetes mellitus On metformin 500 mg b.i.d. Started the patient on hyperglycemia/hypoglycemia protocol with low-dose supplemental insulin protocol. Increase the dose of insulin if required. Follow up with the HB A1c. S/p left brachial artery pseudoaneurysm repair Patient is a s/p left subclavian stent placement followed by left brachial artery aneurysm repair. Continue Plavix. Peripheral neuropathy Continue gabapentin. Mitral valve prolapse Fibromyalgia History of CVA Continue outpatient management. Code Status: Full code DVT Prophylaxis: Eliquis Analgesia/Sedation: [place] Lines/Tubes: PIV GI Prophylaxis: Protonix Nutrition: Heart healthy diet PT: Ordered Prognosis: Guarded Disposition: We will admit the patient into medical [place]. Continue IV steroids, antibiotics and breathing treatments. Neena Colon MD Internal Medicine Resident PGY-2 Date of Service: Jan 14, 2025 Billing Provider: ANA MARIA MARTINS MD Addendum Attestation I agree with the residents assessment and plan as below: Plan: start ceftriaxone nebs q6hr continue NC at 5L CCT 52 min using HIPPA compliant A/V technology NEENA COLON, RES Jan 14, 2025 03:34 ANA MARIA MARTINS MD Jan 14, 2025 09:08
[2025-01-14 03:43] LABS: CHOL/HDL RATIO 3.8 (0.00-4.99); LDL CHOLESTEROL 112 MG/DL (50-100)
[2025-01-14] MEDS ORDERED: glucagon, human recombinant 1mg kit SUBCUT PRN (04:30)
[2025-01-14] MEDS ORDERED: dextrose 50%-water 50ml dispensing syringe IV PRN ×2 (04:30)
[2025-01-14] MEDS ORDERED: DEXTROSE 15 GM of carb/4 tabs (each vial/BOTTLE has 4 tablets) PO PRN ×2 (04:30)
[2025-01-14] MEDS: HYDROcodone/acetaminophen 10/325mg tab PO PRN (04:59)
[2025-01-14 06:04] LABS: LEUKOCYTE ESTERASE ,URINE NEGATIVE (Neg); NITRITES, URINE NEGATIVE (Neg); OCCULT BLOOD,URINE NEGATIVE (Neg)
[2025-01-14 06:08] LABS: UA COLLECTION TYPE VOIDED
--- NOTE | 2025-01-14 06:21 | ELECTROCARDIOGRAPH REPORT ---
[facility] Test Date: 2025-01-13 Test Time: 23:03:25 Pat Name: GLORIA JOHNSON Department: EMERGENCY ROOM Room: ED 11 Gender: F Mortgage Underwriter: : 1960 Requested By: YSABEL LONG Order Number: [id number] Reading MD: Measurements Intervals [place] Rate: 60 P: 57 IN: 121 QRS: 57 QRSD: 108 T: 98 QT: 472 QTc: 472 Interpretive Statements Sinus rhythm Probable left atrial enlargement Low voltage, precordial leads Nonspecific T abnormalities, lateral leads Please click the below link to view image of tracing.
[2025-01-14 06:40] LABS: URINE AMPHETAMINE SCREEN NEGATIVE (Neg); URINE BARBITUATE SCREEN NEGATIVE (Neg); URINE BENZODIAZEPINES SCREEN NEGATIVE (Neg); URINE CANNABINOID SCREEN NEGATIVE (Neg); URINE COCAINE SCREEN NEGATIVE (Neg); URINE METHADONE SCREEN NEGATIVE (Neg); URINE OPIATE SCREEN NEGATIVE (Neg); URINE PHENCYCLIDINE SCREEN NEGATIVE (Neg)
[2025-01-14] MEDS: ipratropium/albuterol 3ml nebule NEB SCH (07:13)
[2025-01-14] MEDS: K and/or MAG REPLACEMENT MC SCH (07:24)
[2025-01-14] MEDS: docusate sod 100mg capsule PO SCH (07:37)
[2025-01-14] MEDS: EMPAGLIFLOZIN 10 MG TABLET PO SCH (07:38)
[2025-01-14] MEDS: pantoprazole 40mg Tablet.DR PO SCH (07:38)
[2025-01-14] MEDS: lactobacillus rhamnosus 10,000 MMU CELLS/CAPSULE PO SCH (07:39)
[2025-01-14] MEDS: NIFEdipine XL 30mg tablet PO SCH (07:41)
[2025-01-14] MEDS: duloxetine 30mg CAPSULE.DR PO SCH (07:41)
[2025-01-14] MEDS: INSULIN LISPRO 100 UNIT/ML INSULN.PEN MULTI-DOSE SQ SCH (08:55)
[2025-01-14] MEDS ORDERED: AZIT-164 PO (16:48)
[2025-01-14] MEDS ORDERED: BENZ-111 PO (16:48)
[2025-01-14] MEDS: azithromycin/NS 500mg/250ml 250 ML IV SCH (23:44)
[2025-01-15] VITALS (17 sets, daily range): BP systolic 134–159; BP diastolic 51–56; PULSE 65–85; RESP 13–18; TEMP 97.5–98.6; O2SAT 90–100
[2025-01-15] MEDS: CefTRIAXone/D5W-Rocephin 1gm 50 ML IV SCH (01:05)
[2025-01-15 06:32] LABS: MEAN PLATELET VOLUME 6.9 FL (7.4-10.4); RED CELL DISTRIBUTION WIDTH 15.3 % (11.5-14.5)
[2025-01-15 06:55] LABS: CREATININE 1.39 MG/DL (0.40-0.90); TOTAL CARBON DIOXIDE 28.0 MMOL/L (24-32); eCRCL 39 ML/MIN; eGFR 38 ML/MIN
--- NOTE | 2025-01-15 19:17 | PROGRESS NOTE- Residence ---
Progress Note - Resident Providers to CC Resident Creating Document: ANDREEA GOODWIN RES CC: PRAVIN COLLADO MD ~ Antibiotic Timeout Antibiotic Ordered?: Yes Subjective Patient is examined at bedside. Patient is comfortably lying in the bed, patient continues to have diffuse wheeze on inspiration and expiration. Patient's WBC count elevated probably secondary to the steroid use but the steroid doses could not be reduced in view of diffuse wheeze Objective Vital Signs Date Time Temp Pulse Resp B/P (MAP) Pulse Ox O2 Delivery O2 Flow Rate FiO2 01/15/25 18:00 98.6 75 16 134/51 (78) 90 Nasal Cannula 6.0 01/15/25 15:30 40 Result Diagram: 01/15/2560101/15/25 06 General: Alert, awake, oriented, not in acute distress HEENT: PERRLA, no icterus, pallor, lymphadenopathy, carotid bruit Respiratory system: Bilateral vesicular breath sounds heard, bilateral diffuse expiratory and inspiratory wheeze present CVS: S1-S2 heard, grade 3/6 systolic ejection murmur present in the aortic area GI: Soft, nontender, no organomegaly, no guarding/rigidity, bowel sounds present Neuro: No focal neurological deficits present Extremities: No edema cyanosis clubbing/deformities Skin: Warm and dry Coagulation Studies Laboratory Tests Test 01/13/25 23:07 01/14/25 03:28 Prothrombin Time 10.8 SECONDS (9.0-12.0) INR International Normalized Ratio 1.1 INR Coagulation Comments D-Dimer < 0.19 MG/L FEU (0-0.50) D-Dimer Comment Assessment Assessment A 64-year-old female with PMH of fibromyalgia, asthma, AFib presented to the ED in view of shortness of breaths. Patient is admitted for the management and evaluation of acute on chronic hypoxemic respiratory failure secondary to acute exacerbation of COPD and possible community-acquired pneumonia. Plan Plan Acute on chronic hypoxemic respiratory failure 2/2 * Acute exacerbation of COPD * Can not exclude underlying asthma exacerbation * Community-acquired pneumonia (Gram-positive and Gram-negative organisms) PE, ruled out Reactive leukocytosis Continues to require 6 L of oxygen Elevated WBC count probably secondary to steroid use Continue IV Solu-Medrol 60 mg q.8h, we will deescalate the doses based on patient's improvement Duo nebs q.4h scheduled and q.2h PRN. IV ceftriaxone 1 g daily (day two) and IV azithromycin 500 mg daily (day two) Culturelle p.o. b.i.d. RT evaluate and treat. Incentive spirometry Paroxysmal atrial fibrillation, in sinus rhythm Continue Eliquis 5 mg b.i.d. Currently not on any rhythm or rate controlling medication. Hypertension Continue lisinopril 40 mg daily, nifedipine 60 mg daily. Diabetes mellitus A1c: 6.7 Low dose Sliding scale, on hyper/hypoglycemia protocol Continue to monitor blood sugars S/p left brachial artery pseudoaneurysm repair Patient is a s/p left subclavian stent placement followed by left brachial artery aneurysm repair. Continue Plavix. Peripheral neuropathy Continue gabapentin. Mitral valve prolapse Fibromyalgia History of CVA Continue outpatient management. Code Status: Full code DVT Prophylaxis: Eliquis Nutrition: Heart healthy diet Prognosis: Guarded Disposition: Continue care in PCU. Probable discharge tomorrow. Andreea Goodwin MD Internal Medicine, PGY 2 Date of Service: Jan 15, 2025 Billing Provider: PRAVIN COLLADO MD, SIVA, RES Jan 15, 2025 19:17
[2025-01-15] MEDS: HYDROcodone/acetaminophen 5mg/325mg tablet PO PRN (19:58)
[2025-01-16] VITALS (11 sets, daily range): BP systolic 140; BP diastolic 55; PULSE 66–89; RESP 16–22; TEMP 97.8; O2SAT 86–96
[2025-01-16 06:10] LABS: MEAN PLATELET VOLUME 7.2 FL (7.4-10.4); RED CELL DISTRIBUTION WIDTH 15.7 % (11.5-14.5)
[2025-01-16 06:40] LABS: CREATININE 1.36 MG/DL (0.40-0.90); TOTAL CARBON DIOXIDE 22.3 MMOL/L (24-32); eCRCL 40 ML/MIN; eGFR 39 ML/MIN
[2025-01-16] MEDS ORDERED: CEFD300C3 PO (13:56)
[2025-01-16] MEDS ORDERED: LACT1CAP26 PO (13:56)
[2025-01-16] MEDS ORDERED: AZIT500T9 PO (13:57)
[2025-01-16] MEDS ORDERED: PRED10TA23 PO (13:57)
--- NOTE | 2025-01-16 17:23 | DISCHARGE SUMMARY-Residence ---
Discharge Summary Providers to CC Resident Creating Document: ANDREEA GOODWIN RES CC: PRAVIN COLLADO MD ~ Discharge Summary Admission Diagnosis: COPD, CHF Hospital Course DATE OF ADMISSION: 01/14/25 DATE OF DISCHARGE: 01/16/25 Discharge Diagnosis\Comment: Acute on chronic hypoxemic respiratory failure 2/2 acute exacerbation of COPD, can not exclude underlying asthma exacerbation, community-acquired pneumonia (Gram-positive and Gram-negative organisms PE, ruled out Reactive leukocytosis Paroxysmal atrial fibrillation HTN DM Status post left brachial artery pseudoaneurysm repair Peripheral neuropathy Mitral valve prolapse Fibromyalgia History of CVA Operations\Procedures: None Consultants: None Complications: None Condition on DC: Stable New Medications: Azithromycin (Azithromycin) 500 Mg Tablet 1 TAB PO DAILY for 1 Day, #1 TAB 0 Refills Cefdinir* (Cefdinir*) 300 Mg Capsule 1 CAP PO Q12H for 30 Days, #60 CAP Lactobacillus Rhamnosus (Culturelle) 10 Billion Cell Capsule 1 CAP PO DAILY for 30 Days, #30 CAP 0 Refills Prednisone (Prednisone) 10 Mg Tablet 0 PO DAILY, #42 TABLET Take 6 tabs/day x2 days then 5 daily x2 days 4 daily x2 days 3 daily x2 days 2 daily x2 days 1 daily x2 days then stop. Continued Medications: Albuterol Sulfate (Ventolin Hfa) 90 Mcg Hfa.aer.ad 2 PUFFS INH Q4HPRN PRN for wheezing for 30 Days, #18 GM 0 Refills Apixaban (Eliquis) 5 Mg Tablet 1 TAB PO Q12H for 30 Days, #60 TAB Atorvastatin Calcium (Atorvastatin Calcium) 40 Mg Tablet 1 TAB PO DAILY Benzonatate (Benzonatate) 100 Mg Capsule 1 TAB PO BID Calcium Carbonate (Calcium) 500 Mg Calcium (1250 Mg) Tablet 1000 MG PO DAILY for 30 Days, #60 TAB 0 Refills Cetirizine HCl (Cetirizine HCl) 10 Mg Tablet 1 TAB PO QPM for allergies Cholecalciferol (Vitamin D3) (Vitamin D3) 50 Mcg Tablet 1 TAB PO DAILY Clopidogrel Bisulfate (Plavix) 75 Mg Tablet 1 TAB PO QPM, TAB 0 Refills Cyanocobalamin (Vitamin B-12) (Vitamin B-12) 1,000 Mcg Tablet 1 TAB PO DAILY for 30 Days, #30 TAB 0 Refills Duloxetine HCl (Duloxetine HCl) 60 Mg Capsule.dr 1 CAP PO BID Empagliflozin (Jardiance) 10 Mg Tablet 1 TAB PO DAILY for 30 Days, #30 TAB 0 Refills Fluticasone/Vilanterol (Breo Ellipta 100-25 Mcg INH) 100 Mcg-25 Mcg/Dose Aer.pow.ba 1 PUFFS INH DAILY Gabapentin (Neurontin) 300 Mg Capsule 300 MG PO TID Lisinopril* (Lisinopril*) 40 Mg Tablet 1 TAB PO DAILY Metformin HCl (Metformin HCl) 500 Mg Tablet 1 TAB PO BID Nifedipine ER* (Nifedipine Er*) 60 Mg Tab.er2.24 1 TAB PO DAILY Pantoprazole Sodium (PROTONIX tablet) 40 Mg Tablet.dr 1 TAB PO DAILY for 30 Days, #30 TAB 0 Refills Tizanidine Hcl (Zanaflex) 2 Mg Tablet 1 TAB PO Q8H PRN for muscle spasms for 30 Days, #90 TAB 0 Refills Discontinued Medications: Azithromycin (Zithromax) 250 Mg Tablet 1 TAB PO DAILY Discharge Summary: A 64-year-old female on 3 L oxygen at home with PMH of fibromyalgia, asthma, AFib, COPD presented to the ED in view of shortness of breaths. On further louie luation patient was found to have wheeze indicating acute exacerbation of COPD, bilateral opacities concern for community-acquired pneumonia. Patient was also initially requiring 6 L of oxygen. PE was ruled out with negative D-dimer. Patient was admitted for the management of acute on chronic hypoxemic respiratory failure. Patient was treated with IV ceftriaxone, azithromycin, Solu-Medrol and DuoNebs. Patient was adequately anticoagulated for paroxysmal AFib and left brachial artery pseudoaneurysm repair with Eliquis and Plavix respectively. Patient's other medical conditions like HTN and diabetes mellitus were managed appropriately and per home medications. Patient is discharged home as she is hemodynamically stable. Physical examination at discharge: General: Alert, awake, oriented, not in acute distress HEENT: PERRLA, no icterus, pallor, lymphadenopathy, carotid bruit Respiratory system: Bilateral vesicular breath sounds heard, bilateral diffuse expiratory and inspiratory wheeze present (resolved) CVS: S1-S2 heard, grade 3/6 systolic ejection murmur present in the aortic area GI: Soft, nontender, no organomegaly, no guarding/rigidity, bowel sounds present Neuro: No focal neurological deficits present Extremities: No edema cyanosis clubbing/deformities Skin: Warm and dry Labs at discharge: WBC: 16.1, H/H: 10.1/31.8, platelet count: 540 Sodium: 136, potassium: 4.7, BUN: 38, creatinine: 1.36 Imaging: Chest x-ray: Mild basilar pulmonary airspace disease and probable small bilateral pleural effusions Discharge medications can be found above patient is discharged home with the following recommendations: Follow up with primary care within two weeks of discharge. We gave you a long steroid taper: Please follow instructions from below Take 6 tabs/day x2 days then 5 daily x2 days 4 daily x2 days 3 daily x2 days 2 daily x2 days 1 daily x2 days then stop. We are sending you home on one dose of azithromycin and cefdinir for the next five days, Culturelle for 30 days We are discharging you home with 2 L of oxygen that has ureter baseline. Return to ER in view of worsening shortness of breaths, chest pain, palpitations. *Problems/Diagnosis: (1) Acute exacerbation of chronic obstructive airways disease Status: Acute (2) Hypoxemia Status: Acute (3) Pneumonia Total Time Spent on D/C: > 30 Minutes Date of Service: Jan 16, 2025 Billing Provider: PRAVIN COLLADO MD, SIVA, RES Jan 16, 2025 17:22
== END 2025-01-16 17:05 | disposition home health service (06) | DRG 189 ==
LOC: ER 22:56 → ED HOLD 01-14 02:09 → ORTHO 4S 01-14 10:56
PROVIDERS: ADMIT Internal Medicine; ATTEND Family Medicine
DX: J96.21 Acute and chronic respiratory failure with hypoxia (principal); J15.69 Pneumonia due to other Gram-negative bacteria; J15.9 Unspecified bacterial pneumonia; J44.1 Chronic obstructive pulmonary disease with (acute) exacerbation; J45.901 Unspecified asthma with (acute) exacerbation; J44.0 Chronic obstructive pulmonary disease with (acute) lower respiratory infection; I48.0 Paroxysmal atrial fibrillation; I34.1 Nonrheumatic mitral (valve) prolapse; Z20.822 Contact with and (suspected) exposure to COVID-19; E78.00 Pure hypercholesterolemia, unspecified; F03.90 Unspecified dementia, unspecified severity, without behavioral disturbance, psychotic disturbance, mood disturbance, and anxiety; M79.7 Fibromyalgia; F32.A Depression, unspecified; E11.42 Type 2 diabetes mellitus with diabetic polyneuropathy; D72.828 Other elevated white blood cell count; K21.9 Gastro-esophageal reflux disease without esophagitis; J45.909 Unspecified asthma, uncomplicated; I25.10 Atherosclerotic heart disease of native coronary artery without angina pectoris; Z88.0 Allergy status to penicillin; Z88.2 Allergy status to sulfonamides; Z88.8 Allergy status to other drugs, medicaments and biological substances; Z91.018 Allergy to other foods; Z79.01 Long term (current) use of anticoagulants; Z79.899 Other long term (current) drug therapy; Z90.49 Acquired absence of other specified parts of digestive tract; Z86.73 Personal history of transient ischemic attack (TIA), and cerebral infarction without residual deficits; Z87.891 Personal history of nicotine dependence; I25.2 Old myocardial infarction
CPT/HCPCS: 36415; 71046; 80048; 80053; 80061; 80305; 81003; 82948; 83036; 83605; 83735; 83880; 84145; 85025; 85379; 85610; 87040; 87081; 87811; 93005; 94640; 94760; 97116; 97161; 97530; 99285; A4615; G0378; J0456; J0696; J1815; J1938; J2919; J7050